=== PATIENT | male | born 1960 | race Caucasian/White ===

== ENCOUNTER 2020-09-22 12:11 | Inpatient (IN) | payer OTHER, SELFPAY ==
[2020-09-22 13:01] LABS: #Basophils 0.1 thou/uL (0.0-0.2); #Eosinphils 0.1 thou/uL (0.0-0.7); #Lymphocytes 2.1 thou/uL (1.20-3.40); #Monocytes 0.7 thou/uL (0.11-0.59); %Eosinophils 0.6 % (0.0-10.0); %Lymphocytes 16.1 % (21.0-51.0); %Monocytes 5.2 % (0.0-10.0); %Neutrophils 77.1 % (42.0-75.0); Hemoglobin 15.9 g/dL (14.0-18.0); Mean Corpuscular HGB CONC 34.6 g/dL (32.0-36.0); Mean Corpuscular Hemoglobin 35.5 pg (27.0-31.0); Mean Platelet Volume 7.3 fL (7.4-10.4); Platelet Count 242 thou/uL (130-400); RBC Distribution Width 11.7 % (11.5-14.5); Red Blood Cell (RBC) Count 4.48 mill/uL (4.70-6.10)
[2020-09-22 13:23] LABS: ALT (SGPT) 12 U/L (8-55); AST (SGOT) 28 U/L (5-34); Alkaline Phosphatase 73 U/L (40-110); Anion Gap 16 mmol/L (10-20); BUN (Urea Nitrogen) 10 mg/dL (8.4-25.7); Bilirubin, Total 0.5 mg/dL (0.2-1.2); Calc. Creatinine Clearance 0 mL/min (70-130); Calcium 9.1 mg/dL (7.8-10.44); Carbon Dioxide 23 mmol/L (22-29); Chloride 104 mmol/L (98-107); Estimated GFR-MDRD 90; Globulin 3.1 g/dL (2.4-3.5); Glucose 99 mg/dL (70-105); Potassium 4.6 mmol/L (3.5-5.1); Protein, Total 7.1 g/dL (6.0-8.3); Sodium 138 mmol/L (136-145)
[2020-09-22] MEDS ORDERED: Nitroglycerin 2% Ointment 1 INCH/1 GM Packet ONE (13:45)
[2020-09-22] MEDS ORDERED: Aspirin 325 MG TAB ONE (13:45)
[2020-09-22] MEDS ORDERED: Metoprolol Tartrate 5 MG/5 ML VIAL ONE (13:45)
[2020-09-22] MEDS ORDERED: Enoxaparin Sodium 100 MG/ML SYRINGE ONE (13:45)
--- NOTE | 2020-09-22 14:33 | RAD ---
PORTABLE CHEST: Date: 09-22-2020 PROVIDED CLINICAL HISTORY: Chest pain FINDINGS: Comparison 04-12-2016. Cardiac and mediastinal silhouette is within normal limits. Emphysematous changes are noted with diff use interstitial prominence which appears new since the prior study. There is no pleural fluid or pne umothorax apparent. There is a 7 mm right upper lobe pulmonary nodule, incompletely characterized on the basis of this st udy. IMPRESSION: 1. Diffuse bilateral interstitial prominence, correlation with concerns for pneumonia. Follow up aimee mmended. 2. Right upper lung zone pulmonary nodule for which correlation with non-emergent follow up CT is rec ommended. Code Lung Nodule POS: LIAM
--- NOTE | 2020-09-22 15:02 | PDOC.HHP ---
Hospitalist HPI - History of Present Illness chest pain History of Present Illness: PCP: None The patient is a 60-year-old male with a past medical history for hypertension, smoking, marijuana abuse depression and noncompliance with home medications that presents to the emergency department via EMS for the above complaint. The patient reports sudden onset of chest pain at approximately 7:30 this morning while getting ready to go to work. He reports that the pain was located midsternum, nonradiating, described as pressure like, sharp and steady, exacerbated with exertion and relieved by sublingual nitroglycerin, pain scale 9/10, after sublingual nitroglycerin, pain scale 1/10. He reports that he has had this pain 3-4 times in the last month. He reports that this morning's episode was the worst, stating that it would not stop. Patient denies any heart palpitations, lightheadedness or swelling to lower extremities. He reports some associated shortness of breath, chronic non productive cough, denies wheezing. No history of DVT/PE. No history of COPD/asthma. He denies abusing any stimu lants. ED Course: VITAL SIGNS [place] Sep 22, 2020 12:37 Esquivel RN, Daniel BP: 156/89, MAP: 111, Pulse: 104, Resp: 18, Temp: 98.2 (Oral), Pain: 0, O2 sat: 97 on (Room Air), Time: 09/22/2020 12:37. VITAL SIGNS [place] Sep 22, 2020 13:50 UGO Aburto Jeffery BP: 151/94, MAP: 113, Pulse: 91, Resp: 34, Pain: 2, O2 sat: 98, Time: 09/22/2020 13:50. VITAL SIGNS [place] Sep 22, 2020 14:01 UGO Aburto Jeffery BP: 151/96, MAP: 114, Pulse: 94, Resp: 29, Pain: 2, O2 sat: 98 on (Room Air), Time: 09/22/2020 14:01. Medication administration: metoprolol tartrate intravenous 5 mg IV Push Acknowledged 13:36 09/22/2020 Lovenox 1 mg/kg Subcutaneous Given 14:00 09/22/2020 Nitro-Bid transdermal 1 inch Topical Given 13:54 09/22/2020 aspirin oral 324 mg Oral Given 13:52 09/22/2020 Hospitalist ROS - Review of Systems All other systems reviewed; all pertinent +/- noted in HPI/Subj - Medication Medications: None Allergies: None Hospitalist History - Past Medical History Source: patient, RN notes reviewed Cardiac: reports: HTN (Noncompliant) Psych: reports: Depression (No home medication regimen) - Past Surgical History Past Surgical History: reports: Total Hip Replacement (Right), Other (History of colostomy with reversal) - Family History Family History: reports: cardiac disorder - Social History Smoking Status: Current every day smoker (2 packs/day x 30 years) Tobacco Type: cigarettes Alcohol: reports: Heavy (3 rum and cokes per day) Drugs: reports: marijuana (1 joint per day) Living Situation: With Family Activity level: independent ambulation - Exam General Appearance: NAD, awake alert. negative: ill appearing General - other findings: Appears older than stated age Eye: anicteric sclera ENT: normocephalic atraumatic, moist mucosa Neck: supple, symmetric, no JVD Heart: RRR, no murmur, no gallops, no rubs, normal peripheral pulses Respiratory: no wheezes, no rales, no ronchi, normal chest expansion, no tachypnea Respiratory - other findings: Diminished lower lobes Gastrointestinal: soft, non-tender, normal bowel sounds, no bruit, no guarding, no rigidity Extremities: no cyanosis, no edema Skin: no rashes Neurological: no focal deficits Musculoskeletal: normal tone, normal strength Psychiatric: normal affect, A&O x 3 Hospitalist Results - Labs Result Diagrams: 09/22/20 12:33 09/22/20 12:33 Lab results: WBC 13.0 thou/uL (4.8-10.8) H 09/22/20 12:33 Hgb 15.9 g/dL (14.0-18.0) 09/22/20 12:33 Hct 46.0 % (42.0-52.0) 09/22/20 12:33 MCV 103.0 fL (78.0-98.0) H 09/22/20 12:33 Plt Count 242 thou/uL (130-400) 09/22/20 12:33 Neutrophils % 77.1 % (42.0-75.0) H 09/22/20 12:33 Sodium 138 mmol/L (136-145) 09/22/20 12:33 Potassium 4.6 mmol/L (3.5-5.1) 09/22/20 12:33 Chloride 104 mmol/L (98-107) 09/22/20 12:33 Carbon Dioxide 23 mmol/L (22-29) 09/22/20 12:33 BUN 10 mg/dL (8.4-25.7) 09/22/20 12:33 Creatinine 0.87 mg/dL (0.7-1.3) 09/22/20 12:33 Glucose 99 mg/dL (70-105) 09/22/20 12:33 Calcium 9.1 mg/dL (7.8-10.44) 09/22/20 12:33 Total Bilirubin 0.5 mg/dL (0.2-1.2) 09/22/20 12:33 AST 28 U/L (5-34) 09/22/20 12:33 ALT 12 U/L (8-55) 09/22/20 12:33 Alkaline Phosphatase 73 U/L (40-110) 09/22/20 12:33 CK-MB (CK-2) 5.0 ng/mL (0-6.6) 09/22/20 12:33 Troponin I 0.301 ng/mL (< 0.028) H* 09/22/20 12:33 Serum Total Protein 7.1 g/dL (6.0-8.3) 09/22/20 12:33 Albumin 4.0 g/dL (3.5-5.0) 09/22/20 12:33 Lipase 30 U/L (8-78) 09/22/20 12:32 - EKG Interpretation EK lead EKG interpreted by Emergency Department Physician at time of study, 12 lead EKG shows, sinus tachycardia, Rate (beats per minute): 101, with no ectopics, Conduction with, incomplete right bundle branch block, ST segments normal, T waves, inverted, Areas affected: lateral leads, [place] normal, Clinical impression:, myocardial injury. - Radiology Interpretation Chest x-ray Status: report reviewed by me Additional Comment: IMPRESSION: 1. Diffuse bilateral interstitial prominence, correlation with concerns for pneumonia. Follow up recommended. 2. Right upper lung zone pulmonary nodule for which correlation with non- emergent follow up CT is recommended. CT scan - chest Status: pending Hospitalist H&P A/P - Problem (1) Non-STEMI (non-ST elevated myocardial infarction) Code(s): I21.4 - NON-ST ELEVATION (NSTEMI) MYOCARDIAL INFARCTION Status: Acute (2) Chest pain Code(s): R07.9 - CHEST PAIN, UNSPECIFIED Status: Acute (3) Bilateral pulmonary infiltrates on chest x-ray Code(s): R91.8 - OTHER NONSPECIFIC ABNORMAL FINDING OF LUNG FIELD Status: Acute (4) Right upper lobe pulmonary nodule Code(s): R91.1 - SOLITARY PULMONARY NODULE Status: Acute (5) Hypertension Code(s): I10 - ESSENTIAL (PRIMARY) HYPERTENSION Status: Chronic (6) Tobacco abuse Code(s): Z72.0 - TOBACCO USE Status: Chronic (7) Marijuana abuse Code(s): F12.10 - CANNABIS ABUSE, UNCOMPLICATED Status: Chronic (8) ETOH abuse Code(s): F10.10 - ALCOHOL ABUSE, UNCOMPLICATED Status: Chronic - Plan Plan: 60/M with PMH HTN (noncompliant) and smoking presents for chest pain. Admit telemetry floor, inpatient status. Expected length of stay greater than 2 midnights. Presented hypertensive and tachycardic, with NL RR/SPO2, afebrile. EKG sinus tachycardia, incomplete RBBB, T inversions lateral leads CXR diffuse bilateral interstitial prominence, RUL pulm. nodule. Initial troponin 0.301, CK-MB 5.0, DD 0.56 WBC 13 #Non-STEMI Heart score 5, Wells PE score 1.5. Order CTA chest. Trend troponins, check FLP, BMP, mag, UA/UDS. Continue aspirin, LMWH 1 mg/kg, Nitropaste Start statin, morphine as needed N.p.o. for now Consult cardiology Order echocardiogram. #Chest pain Unstable angina. Resolved with nitroglycerin sublingual. Plan as above. #Bilateral pulmonary infiltrates on chest x-ray Presented stable afebrile, RR, Sp02. WBCs 13,000. CTA chest pending. #Right upper lobe pulmonary nodule Incidental finding on CXR. Recommend nonemergent CT chest. Will need follow up outpatient. #Hypertension Presented mildly hypertensive. Given metoprolol IVP x1 dose in ER. We will monitor BP. Will add as needed antihypertensives if necessary. #Tobacco abuse 2 pack/day x 30-year habit. Unwilling to quit. Nicotine patch. [employer] Hand on smoking cessation.. #Marijuana abuse Smokes 1 joint per day. Unwilling to quit. Check UDS for coingestants. #EtOH abuse Endorses 3-4 rum and coke daily. Never been admitted for EtOH withdrawals. Check UDS for coingestants. Initiate ASE protocol for nursing. No DVT prophylaxis. Pepcid for GI prophylaxis. Full code. Designated contact is Karen, spouse, . Discussed the case with Dr. Johnson.
[2020-09-22] MEDS ORDERED: Nitroglycerin 0.4 MG TAB (25 Tab Bottle) SL PRN (15:10)
[2020-09-22] MEDS ORDERED: Senokot S 8.6-50 MG TAB PO PRN (15:15)
[2020-09-22] MEDS ORDERED: Calcium Carbonate 500 MG ChewTAB PO PRN (15:15)
[2020-09-22] MEDS ORDERED: Acetaminophen 325 MG TAB PO PRN (15:15)
[2020-09-22] MEDS ORDERED: Iopamidol-370 76% 500 ML 1 ML ONE (15:42)
[2020-09-22 16:33] LABS: Troponin I 2.527 ng/mL (< 0.028)
--- NOTE | 2020-09-22 17:21 | CT ---
CT PULMONARY ANGIOGRAM WITH IV CONTRAST AND 3D MIP RECONSTRUCTIONS: Date: 09-22-2020 PROVIDED CLINICAL HISTORY: Chest pain FINDINGS: There is no evidence for central or segmental pulmonary embolus. Vascular calcification including cor onary calcium is demonstrated. There are several upper limits normal to mildly enlarged mediastinal lymph nodes, the largest paratra cheal node measures about 1.2 cm in short axis. There is no evidence for hilar or axillary lymph node enlargement. There are noncalcified pulmonary nodules within the right upper lobe and left upper lobe. There are t wo within the right upper lobe and one in the left upper lobe. The largest is the right upper nodule, more cranially located, measuring approximately 7.5 mm in axial dimension. There is no focal consolidation evident. There is diffuse bronchial wall thickening bilaterally. No pleural fluid or pneumothorax is evident. The visualized portions of the upper abdomen are unremar kable. The osseous structures demonstrate no concerning lytic or blastic lesions. IMPRESSION: 1. No evidence for central or segmental pulmonary embolus. 2. Vascular calcification including coronary calcium. 3. Diffuse bronchial wall thickening compatible with bronchitis. 4. Bilateral pulmonary nodules, the largest right upper lobe nodule measuring about 7.5 mm in average axial dimension. Follow up chest CT in 6 months is recommended. 5. Nonspecific mediastinal lymph node enlargement. POS: LIAM
[2020-09-22] MEDS: Morphine 2 MG/ML VIAL SLOW IVP PRN (17:59)
[2020-09-22] MEDS ORDERED: Morphine 4 MG/ML VIAL ONE (18:01)
[2020-09-22 20:50] LABS: Troponin I 5.129 ng/mL (< 0.028)
[2020-09-22] MEDS: Enoxaparin Sodium 80 MG/0.8 ML SYRINGE SC SCH (21:01)
[2020-09-22] MEDS: Atorvastatin Calcium 40 MG TAB PO SCH (21:01)
[2020-09-22] MEDS: Nicotine 7 MG PATCH TD SCH (21:02)
[2020-09-22] MEDS: Nitroglycerin 2% Ointment 1 INCH/1 GM Packet TOP SCH (21:02)
[2020-09-23] MEDS: Morphine 2 MG/ML VIAL SLOW IVP PRN ×2 (01:45→21:55)
[2020-09-23 04:36] LABS: #Basophils 0.1 thou/uL (0.0-0.2); #Eosinphils 0.1 thou/uL (0.0-0.7); #Lymphocytes 3.5 thou/uL (1.20-3.40); #Monocytes 0.7 thou/uL (0.11-0.59); #Neutrophils 4.8 thou/uL (1.40-6.50); %Eosinophils 0.8 % (0.0-10.0); %Lymphocytes 38.1 % (21.0-51.0); %Monocytes 7.3 % (0.0-10.0); %Neutrophils 52.7 % (42.0-75.0); Hemoglobin 13.9 g/dL (14.0-18.0); Mean Corpuscular HGB CONC 34.4 g/dL (32.0-36.0); Mean Corpuscular Hemoglobin 35.2 pg (27.0-31.0); Mean Platelet Volume 7.6 fL (7.4-10.4); Platelet Count 205 thou/uL (130-400); RBC Distribution Width 11.5 % (11.5-14.5); Red Blood Cell (RBC) Count 3.96 mill/uL (4.70-6.10); White Blood Cell (WBC) Count 9.1 thou/uL (4.8-10.8)
[2020-09-23 05:05] LABS: Anion Gap 14 mmol/L (10-20); BUN (Urea Nitrogen) 10 mg/dL (8.4-25.7); Calc. Creatinine Clearance 108 mL/min (70-130); Calcium 8.7 mg/dL (7.8-10.44); Carbon Dioxide 21 mmol/L (22-29); Cardiac Risk 3.3 (Less than 4.5); Chloride 102 mmol/L (98-107); Cholesterol 150 mg/dl (< 200 Desired); Estimated GFR-MDRD Greater than 90; Glucose 102 mg/dL (70-105); HDL Cholesterol 46 mg/dL (>60 Neg Risk); LDL Cholesterol, Calculated 89 mg/dL; Potassium 3.6 mmol/L (3.5-5.1); Sodium 133 mmol/L (136-145); Triglycerides 77 mg/dL (Less than 150)
[2020-09-23] MEDS: Nitroglycerin 2% Ointment 1 INCH/1 GM Packet TOP SCH ×3 (06:11→21:56)
[2020-09-23 08:06] LABS: Bacteria/HPF None Seen HPF (None Seen); Bilirubin Negative (Negative); Blood, Urine Trace (Negative); Clarity Clear (Clear); Glucose, Urine (Dipstick) Normal (Negative); Ketone, Urine Negative (Negative); Leukocyte Negative Leu/uL (Negative); Nitrite Negative (Negative); Protein, Urine (Dipstick) 10 mg/dL (Neg-Trace); RBC/HPF 0-3 HPF (0-3); Specific Gravity, Urine 1.039 (1.002-1.036); Squamous Epithelial 0-3 HPF (0-3); Urobilinogen Normal mg/dL (Less than 2); WBC/HPF 0-3 HPF (0-3)
[2020-09-23] MEDS: Enoxaparin Sodium 80 MG/0.8 ML SYRINGE SC SCH ×2 (09:34→21:54)
[2020-09-23] MEDS: Aspirin 81 mg Enteric Coated Tablet PO SCH (09:34)
--- NOTE | 2020-09-23 11:07 | PDOC.HOSPP ---
- Subjective Encounter Date: 09/23/20 Encounter Time: 08:00 Subjective: No overnight events. Patient reports his chest pain has resolved. No additional episodes. Denies shortness of breath, palpitations. No other complaints. Chart and medications reviewed. - Objective Vital Signs & Weight: Vital Signs (12 hours) Temp Pulse Resp BP BP Pulse Ox 09/23/20 07:36 97.6 F 78 18 129/91 H 97 09/23/20 07:32 95 09/23/20 06:00 98.2 F 72 16 133/80 133/80 95 Weight Weight 156 lb I&O: 09/22/20 09/23/20 09/24/20 06:59 06:59 06:59 Intake Total 500 Balance 500 Result Diagrams: 09/23/20 04:08 09/23/20 04:08 Hospitalist ROS - Review of Systems Constitutional: denies: fever, chills, sweats, weakness Eyes: denies: vision change ENT: denies: nose congestion, throat pain Respiratory: denies: cough, shortness of breath Cardiovascular: denies: chest pain, palpitations, light headedness Gastrointestinal: denies: nausea, vomiting, abdominal pain, diarrhea Genitourinary: denies: dysuria Skin: denies: rash, lesions Neurological: denies: weakness, numbness - Medication Medications: Active Medications Generic Name Dose Route Start Last Admin Trade Name Freq PRN Reason Stop Dose Admin Acetaminophen 650 mg 09/22/20 15:15 09/22/20 21:14 Acetaminophen 325 Mg Tab PO 650 mg Q4H PRN Administration Headache/Fever/Mild Pain (1-3) Aspirin 81 mg 09/23/20 09:00 09/23/20 09:34 Aspirin 81 Mg Enteric Coated Tablet PO 81 mg DAILY WES Administration Atorvastatin Calcium 40 mg 09/22/20 21:00 09/22/20 21:01 Atorvastatin Calcium 40 Mg Tab PO 40 mg HS WES Administration Enoxaparin Sodium 70 mg 09/22/20 21:00 09/23/20 09:34 Enoxaparin Sodium 80 Mg/0.8 Ml Syringe SC 70 mg 0900,2100 WES Administration Morphine Sulfate 2 mg 09/22/20 15:14 09/23/20 01:45 Morphine 2 Mg/Ml Vial SLOW IVP 2 mg Q4H PRN Administration Pain Nicotine 7 mg 09/22/20 18:00 09/22/20 21:02 Nicotine 7 Mg Patch TD 7 mg 1800 WES Administration Nitroglycerin 0.5 inch 09/22/20 22:00 09/23/20 06:11 Nitroglycerin 2% Ointment 1 Inch/1 Gm Packet TOP 0.5 inch Q8HR WES Administration - Exam General Appearance: NAD, awake alert Eye: anicteric sclera ENT: normocephalic atraumatic, no oropharyngeal lesions Neck: supple, symmetric, no JVD, no thyromegaly, no lymphadenopathy, no carotid bruit Heart: RRR, no murmur, no gallops, no rubs, normal peripheral pulses Respiratory: CTAB, no wheezes, no rales, no ronchi, normal chest expansion, no tachypnea, normal percussion Gastrointestinal: soft, non-tender, non-distended, normal bowel sounds, no palpable masses, no hepatomegaly, no splenomegaly, no bruit Extremities: no cyanosis, no clubbing, no edema Skin: normal turgor, no lesions, no rashes Neurological: cranial nerve grossly intact, normal sensation to touch, no weakness, no focal deficits, no new deficit Musculoskeletal: normal tone, normal strength, no muscle wasting Psychiatric: normal affect, normal behavior, A&O x 3 Hosp A/P - Plan 60/M with PMH HTN (noncompliant) and smoking presents for chest pain. Admit telemetry floor, inpatient status. Expected length of stay greater than 2 midnights. Presented hypertensive and tachycardic, with NL RR/SPO2, afebrile. EKG sinus tachycardia, incomplete RBBB, T inversions lateral leads CXR diffuse bilateral interstitial prominence, RUL pulm. nodule. Initial troponin 0.301, CK-MB 5.0, DD 0.56 WBC 13 NSTEMI Troponin elevated 0.301, 2.527, 5.129. EKG with no ST depression or elevation. Continue to trend troponin to peak Continue aspirin, LMWH 1 mg/kg, Nitropaste Start statin, morphine as needed Cardiology consulted, recs appreciated Echocardiogram pending #Chest pain Unstable angina. Resolved with nitroglycerin sublingual. Plan as above. #Bilateral pulmonary infiltrates on chest x-ray Presented stable afebrile, RR, Sp02. WBCs 13,000. CTA chest with no PE. Did show diffuse bronchial wall thickening c/w bronchitis No SOB. Patient's respiratory status stable. Will likely need outpatient follow up for PFTs. #Right upper lobe pulmonary nodule Incidental finding on CXR. Recommend nonemergent CT chest in 6 months. Will need follow up outpatient. #Hypertension Presented mildly hypertensive. Given metoprolol IVP x1 dose in ER. We will monitor BP. Will add as needed antihypertensives if necessary. #Tobacco abuse 2 pack/day x 30-year habit. Unwilling to quit. Nicotine patch. Hod Carrier on smoking cessation.. #Marijuana abuse Smokes 1 joint per day. Unwilling to quit. Check UDS for coingestants. #EtOH abuse Endorses 3-4 rum and coke daily. Never been admitted for EtOH withdrawals. Check UDS for coingestants. Initiate ASE protocol for nursing. DVT prophylaxis - full AC on lovenox Full code. Designated contact is Karen, spouse, . Case discussed with attending physician, Dr. Johnson.
[2020-09-23 13:02] LABS: SARS-CoV-2 MS2 Positive; SARS-CoV-2 N Gene Negative; SARS-CoV-2 S Gene Negative; SARS-CoV-2 by NAA Not Detected (NotDetected); SARS-CoV-2 orf1ab Negative
[2020-09-23] MEDS ORDERED: Communication Order-Pharmacy FS SCH (14:15)
[2020-09-23 14:39] LABS: Amphetamine Not Detected (NotDetected); Barbiturates Screen Not Detected (NotDetected); Benzodiazepine Screen Not Detected (NotDetected); Cocaine Metabolite Screen Not Detected (NotDetected); Medtox Reader # READER 4; Methadone Not Detected (NotDetected); Methamphetamine Not Detected (NotDetected); Opiate Screen Detected (NotDetected); Oxycodone Screen Not Detected (NotDetected); Phencyclidine (PCP) Not Detected (NotDetected); THC/Cannabinoid Screen Not Detected (NotDetected); Tricyclic Screen Not Detected (NotDetected)
[2020-09-23 14:40] LABS: Medtox Control Line Valid? VALID (VALID)
[2020-09-23 14:49] LABS: Critical Call Chem Troponin I RESULT DECREASING
[2020-09-23 15:16] LABS: CKMB 7.3 ng/mL (0-6.6)
--- NOTE | 2020-09-23 15:45 | CON ---
DATE OF CONSULTATION: 09/23/2020 REASON FOR CONSULTATION: Non-ST elevation myocardial infarction. HISTORY OF PRESENT ILLNESS: Mr. Hudson is a 60-year-old man, who has been having recent chest pain or pressure. The chest pain or pressure has been going on for a couple of weeks, but he had a severe episode last night, came here to the emergency room, where he had relief of pain with medication. He is pain-free now. However, his troponin levels are increased. PAST HISTORY: Negative for any cardiac operations or procedures. Positive for hypertension. REVIEW OF SYSTEMS: CONSTITUTIONAL: No significant weight gain or loss. VISION: No changes. HEARING: No changes. PULMONARY: No cough or wheezing. GASTROINTESTINAL: No nausea, vomiting, or diarrhea. SKIN: No rashes. NEUROLOGIC: No unilateral weakness or numbness. PSYCHIATRIC: No unusual depression or anxiety. SOCIAL HISTORY: According to the initial history and physical, 2-pack cigarettes per day for 30 years. Alcohol, 3 rum and cokes per day. FAMILY HISTORY: Noncontributory. PHYSICAL EXAMINATION: GENERAL: This is a 60-year-old male, in no distress. VITAL SIGNS: Blood pressure now controlled 137/83, pulse 70. LUNGS: Clear. CARDIAC: Normal S1, normal S2. There is no murmur, rub, or gallop. ABDOMEN: Soft and nontender. EXTREMITIES: Warm, dry. No clubbing. No cyanosis. There is no edema. The pedal pulses seem somewhat diminished, but palpable. LABORATORY DATA: Current laboratories; troponin 5.129. BNP 362. IMAGING STUDIES: EKG reveals normal sinus rhythm, left ventricular hypertrophy with repolarization changes. ASSESSMENT: 1. [id number] myocardial infarction. 2. Hypertension. 3. Tobacco dependence. 4. Received Lovenox this morning, full dose 1 mg/kg subcutaneously at 9:34 a.m. PLAN: Proceed to cardiac catheterization tomorrow. Discussed risk of stroke, heart attack, iodine allergy, loss of blood supply to leg or kidney, stent thrombosis, stent restenosis, emergency heart surgery. He understands these can even be life-threatening complications. He understands and wishes to proceed. We will proceed to schedule tomorrow morning. Job ID: [id number]
[2020-09-23] MEDS: Nicotine 7 MG PATCH TD SCH (17:51)
[2020-09-23 18:03] LABS: Critical Call Chem Troponin I RESULT DECREASING
[2020-09-23 18:21] LABS: CKMB 6.3 ng/mL (0-6.6)
[2020-09-23] MEDS: Atorvastatin Calcium 40 MG TAB PO SCH (21:54)
[2020-09-24] MEDS: Aspirin 81 mg Enteric Coated Tablet PO SCH (05:36)
[2020-09-24] MEDS: Nitroglycerin 2% Ointment 1 INCH/1 GM Packet TOP SCH ×2 (05:37→15:54)
[2020-09-24] MEDS ORDERED: Sodium Chloride 0.9% 1,000 ML IV SCH (06:00)
[2020-09-24] MEDS ORDERED: Diazepam 5 MG TAB PO SCH (06:00)
[2020-09-24] MEDS ORDERED: Fentanyl 100 MCG/2 ML VIAL ONE (07:35)
[2020-09-24] MEDS ORDERED: Midazolam HCl 2 mg/2 ml Vial ONE ×2 (07:35→08:13)
[2020-09-24] MEDS ORDERED: Heparin 10,000 UNITS/ 10 ML VIAL ONE ×2 (08:07→08:22)
[2020-09-24] MEDS ORDERED: Heparin 25,000 units/D5W 500 ML ONE (08:13)
--- NOTE | 2020-09-24 08:54 | PDOC.HOSPP ---
- Subjective Encounter Date: 09/24/20 Encounter Time: 16:00 Subjective: Patient back from CABG. Still on the vent. - Objective Vital Signs & Weight: Vital Signs (12 hours) Temp Pulse Resp BP BP Pulse Ox 09/24/20 04:00 142/70 H 09/24/20 03:20 98.6 F 67 18 142/70 H 98 09/24/20 01:13 98 09/23/20 22:00 64 169/78 H 09/23/20 21:00 77 169/80 H Weight Weight 152 lb I&O: 09/23/20 09/24/20 09/25/20 06:59 06:59 06:59 Intake Total 500 200 Output Total 1 Balance 500 199 Result Diagrams: 09/24/20 14:30 09/24/20 14:30 Hospitalist ROS - Review of Systems ROS unobtainable: due to endotracheal tube - Medication Medications: Active Medications Generic Name Dose Route Start Last Admin Trade Name Freq PRN Reason Stop Dose Admin Acetaminophen 650 mg 09/22/20 15:15 09/22/20 21:14 Acetaminophen 325 Mg Tab PO 650 mg Q4H PRN Administration Headache/Fever/Mild Pain (1-3) Aspirin 81 mg 09/23/20 09:00 09/24/20 05:36 Aspirin 81 Mg Enteric Coated Tablet PO 81 mg DAILY WES Administration Atorvastatin Calcium 40 mg 09/22/20 21:00 09/23/20 21:54 Atorvastatin Calcium 40 Mg Tab PO 40 mg HS WES Administration Sodium Chloride 1,000 mls @ 100 mls/hr 09/24/20 06:00 09/24/20 05:37 Normal Saline 0.9% IV 1,000 mls .Q10H WES Administration Morphine Sulfate 2 mg 09/22/20 15:14 09/23/20 21:55 Morphine 2 Mg/Ml Vial SLOW IVP 2 mg Q4H PRN Administration Pain Nicotine 7 mg 09/22/20 18:00 09/23/20 17:51 Nicotine 7 Mg Patch TD 7 mg 1800 WES Administration Nitroglycerin 0.5 inch 09/22/20 22:00 09/24/20 05:37 Nitroglycerin 2% Ointment 1 Inch/1 Gm Packet TOP 0.5 inch Q8HR WES Administration Nitroglycerin 0.4 mg 09/22/20 15:10 09/23/20 19:45 Nitroglycerin 0.4 Mg Tab (25 Tab Bottle) SL 0.4 mg Q5MIN PRN Administration Chest Pain - Exam General - other findings: Starting to wake up and get restless, on the vent ENT: moist mucosa Heart: RRR, no murmur, no gallops, no rubs Heart - other findings: sternotomy incision with dressing c/d/i, chest tube in place Respiratory: CTAB, no wheezes, no rales, no ronchi Gastrointestinal: soft, non-tender, non-distended, normal bowel sounds Neurological: no focal deficits Psychiatric - other findings: sedated on vent Hosp A/P (1) Non-STEMI (non-ST elevated myocardial infarction) Code(s): I21.4 - NON-ST ELEVATION (NSTEMI) MYOCARDIAL INFARCTION Status: Acute (2) CAD (coronary artery disease) Code(s): I25.10 - ATHSCL HEART DISEASE OF [place] CORONARY ARTERY W/O ANG PCTRS Status: Acute (3) Right upper lobe pulmonary nodule Code(s): R91.1 - SOLITARY PULMONARY NODULE Status: Acute (4) ETOH abuse Code(s): F10.10 - ALCOHOL ABUSE, UNCOMPLICATED Status: Chronic (5) Hypertension Code(s): I10 - ESSENTIAL (PRIMARY) HYPERTENSION Status: Chronic (6) Marijuana abuse Code(s): F12.10 - CANNABIS ABUSE, UNCOMPLICATED Status: Chronic (7) Tobacco abuse Code(s): Z72.0 - TOBACCO USE Status: Chronic - Plan 60/M with PMH HTN (noncompliant) and smoking presents for chest pain. Admit telemetry floor, inpatient status. Expected length of stay greater than 2 midnights. Presented hypertensive and tachycardic, with NL RR/SPO2, afebrile. EKG sinus tachycardia, incomplete RBBB, T inversions lateral leads CXR diffuse bilateral interstitial prominence, RUL pulm. nodule. Initial troponin 0.301, CK-MB 5.0, DD 0.56 WBC 13 #Non-STEMI Heart score 5, [place] PE score 1.5. Order CTA chest. Trend troponins, check FLP, BMP, mag, UA/UDS. Continue aspirin, LMWH 1 mg/kg, Nitropaste Start statin, morphine as needed N.p.o. for now Consult cardiology Order echocardiogram. #NSTEMI Had cardiac cath this morning. #CAD- severe multivessel disease needing urgent CABG, Dr. Miramontes consulted and took to Cath this afternoon, now in ICU #Bilateral pulmonary infiltrates on chest x-ray with bronchitis on CTA, no pneumonia Presented stable afebrile, RR, Sp02. WBCs 13,000. #Right upper lobe pulmonary nodule on CXR with bilateral nodules on CTA Recommend repeat CT chest in 6 months Will need follow up outpatient. #Hypertension Monitor and treat as needed. #Tobacco abuse 2 pack/day x 30-year habit. Unwilling to quit. Nicotine patch. [employer] on smoking cessation.. #Marijuana abuse Smokes 1 joint per day. Unwilling to quit. Check UDS for coingestants. #EtOH abuse Endorses 3-4 rum and coke daily. Never been admitted for EtOH withdrawals. Initiated ASE protocol for nursing. DVT prophylaxis- on Lovenox for the NSTEMI. Pepcid for GI prophylaxis. Full code. Designated contact is Karen, spouse, .
[2020-09-24] MEDS ORDERED: Albumin 5% 500 ML ONE (09:14)
[2020-09-24] MEDS ORDERED: Morphine 2 MG/ML VIAL ONE (09:23)
[2020-09-24] MEDS ORDERED: Heparin 10,000 UNITS/1 ML VIAL 30,000 UNITS in Sodium Chloride 0.9% 1,000 ML FS SCH (09:30)
[2020-09-24] MEDS ORDERED: Fentanyl 250 MCG/5 ML VIAL ONE ×2 (09:48)
[2020-09-24] MEDS ORDERED: Midazolam HCl 5 mg/5 ml Vial ONE (09:48)
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
[2020-09-24] MEDS ORDERED: PHENYLEPHRINE-NS 100 MCG/ML 10 ML SYRINGE ONE (11:42)
[2020-09-24] MEDS ORDERED: Esmolol 100 MG/10 ML VIAL ONE (13:01)
[2020-09-24] MEDS ORDERED: Vecuronium 10 MG VIAL ONE (13:01)
[2020-09-24] MEDS ORDERED: Heparin 5,000 UNITS/ML VIAL ONE (13:01)
[2020-09-24] MEDS ORDERED: Lidocaine 2% PF 100 mg/5 ml Syringe ONE (13:01)
[2020-09-24] MEDS ORDERED: Sodium Bicarb 50 MEQ/50 ML Abboject 8.4% SYRINGE ONE (13:01)
[2020-09-24] MEDS ORDERED: DOPamine 400 MG/10 ML VIAL ONE (13:01)
[2020-09-24] MEDS ORDERED: Aminocaproic Acid 5 GM/20 ML VIAL ONE (13:01)
[2020-09-24] MEDS ORDERED: Thrombin 5000 UNITS/5 ML VIAL ONE (13:01)
[2020-09-24] MEDS ORDERED: Lidocaine 1% PF 5 ML VIAL ONE (13:01)
[2020-09-24] MEDS ORDERED: Mannitol 12.5 GM/50 ML ONE (13:01)
[2020-09-24] MEDS ORDERED: Metoprolol Tartrate 5 MG/5 ML VIAL ONE (13:01)
[2020-09-24] MEDS ORDERED: Nitroglycerin 50 MG/250 ML BOT ONE (13:01)
[2020-09-24] MEDS ORDERED: Potassium Chloride 60 MEQ/30 ML VIAL ONE (13:01)
[2020-09-24] MEDS ORDERED: Heparin 30,000 units/30 ml VIAL ONE (13:01)
[2020-09-24] MEDS ORDERED: Cardioplegic Soln 1,000 ML BAG ONE (13:01)
[2020-09-24] MEDS ORDERED: Rocuronium Bromide 10 MG/ML (10ML VIAL) ONE (13:01)
[2020-09-24] MEDS ORDERED: PROPOFOL 200 MG/20 ML VIAL ONE (13:01)
[2020-09-24] MEDS ORDERED: Magnesium Sulfate 1 GM/2 ML VIAL ONE (13:01)
[2020-09-24] MEDS ORDERED: Protamine Sulfate 250 MG/25 ML VIAL ONE (13:01)
[2020-09-24] MEDS ORDERED: Calcium Chloride 1 GM/10 ML Abboject SYRINGE ONE (13:01)
[2020-09-24] MEDS ORDERED: Papaverine 60 MG/2 ML VIAL ONE (13:01)
[2020-09-24] MEDS ORDERED: Iopamidol 370 76% 100 ML VIAL ONE (13:34)
[2020-09-24] MEDS ORDERED: Hetastarch 6% 500 ML 500 ML IVPB PRN (14:01)
[2020-09-24] MEDS ORDERED: Magnesium 2 GM/50 ML 2 GM in Premix Bag 1 BAG IVPB SCH (14:01)
[2020-09-24] MEDS ORDERED: Bisacodyl 10 MG SUPP PR PRN (14:01)
[2020-09-24] MEDS ORDERED: Post-Op Insulin Drip Protocol IVPB ONE (14:01)
[2020-09-24] MEDS ORDERED: Morphine 2 MG/ML VIAL SLOW IVP PRN (14:01)
[2020-09-24] MEDS ORDERED: Acetaminophen 325 MG TAB PO PRN (14:01)
[2020-09-24] MEDS ORDERED: DOPamine 400 MG/D5W 250 ML 250 ML IVPB PRN (14:01)
[2020-09-24] MEDS ORDERED: hydrALAZINE 20 MG/ML VIAL SLOW IVP PRN (14:01)
[2020-09-24] MEDS ORDERED: Ondansetron PF 4 MG/2 ML Vial IVP PRN (14:01)
[2020-09-24] MEDS ORDERED: Nitroglycerin 50 MG/250 ML BOT 250 ML IVPB PRN (14:01)
[2020-09-24] MEDS ORDERED: Fentanyl 100 MCG/2 ML VIAL SLOW IVP PRN (14:01)
[2020-09-24] MEDS ORDERED: Bisacodyl 5 MG TAB PO PRN (14:01)
[2020-09-24] MEDS ORDERED: niCARdipine 25 MG in Sodium Chloride 0.9% 250 ML 240 ML IVPB PRN (14:01)
[2020-09-24] MEDS ORDERED: Norepinephrine 8 MG/0.9% NS 250 ML IVPB PRN (14:01)
[2020-09-24] MEDS ORDERED: Guaifenesin DM 100-10/5 ML UDCUP PO PRN (14:01)
[2020-09-24] MEDS ORDERED: Potassium Chloride 20 MEQ/100 ML PREMIX BAG IVPB PRN (14:01)
[2020-09-24] MEDS ORDERED: Promethazine HCl 25 MG/ML VIAL IM PRN (14:01)
[2020-09-24] MEDS ORDERED: Mag-Al 1200 mg/1200 mg/30 ML UDCUP PO PRN (14:01)
[2020-09-24 14:33] LABS: Actual Bicarbonate (HCO3a) 21.7 mEq/L (22-28); Base Excess (BEa) -2.6 mEq/L (-2.0 to +3.0); CO2 Tension 36.1 mmHg (35.0-45.0); Calcium, Ionized (arterial) 1.18 mmol/L (1.12-1.30); Carboxyhemoglobin (COHb) 0.2 gm% (0.0-3.0); O2 Tension (PaO2), arterial 210.3 mmHg (> 80.0); Potassium - ABG Lab 4.06 mmol/L (3.70-5.30)
[2020-09-24 14:36] LABS: ALV-art Gradient 169.375 mmHg (0-20); Puncture Site ALINE
[2020-09-24] MEDS: Lactated Ringer's 1,000 ML IV SCH (14:37)
[2020-09-24 14:39] LABS: #Eosinphils 0.1 thou/uL (0.0-0.7); #Monocytes 0.6 thou/uL (0.11-0.59); #Neutrophils 8.8 thou/uL (1.40-6.50); %Basophils 0.2 % (0.0-1.0); %Eosinophils 0.6 % (0.0-10.0); %Lymphocytes 17.2 % (21.0-51.0); %Monocytes 5.4 % (0.0-10.0); %Neutrophils 76.5 % (42.0-75.0); Hemoglobin 11.5 g/dL (14.0-18.0); Mean Corpuscular HGB CONC 34.4 g/dL (32.0-36.0); Mean Corpuscular Hemoglobin 35.3 pg (27.0-31.0); Mean Platelet Volume 7.5 fL (7.4-10.4); Platelet Count 115 thou/uL (130-400); RBC Distribution Width 11.3 % (11.5-14.5); Red Blood Cell (RBC) Count 3.26 mill/uL (4.70-6.10); White Blood Cell (WBC) Count 11.5 thou/uL (4.8-10.8)
[2020-09-24 14:44] LABS: INR-International Normal Ratio 1.1; PTT 33.8 sec (22.9-36.1); Prothrombin Time 14.8 sec (12.0-14.7)
[2020-09-24] MEDS ORDERED: Dextrose 5% in Water 1,000 ML IV PRN (14:45)
[2020-09-24] MEDS ORDERED: Insulin Regular 300 UNITS/3 ML VIAL SC PRN (14:45)
[2020-09-24] MEDS ORDERED: HUMULIN R 100 UNITS in Sodium Chloride 0.9% 100 ML IVPB SCH (14:45)
[2020-09-24] MEDS ORDERED: Dextrose 50% Abboject 50 ML SYRINGE SLOW IVP PRN (14:45)
[2020-09-24] MEDS ORDERED: Morphine 4 MG/ML VIAL ONE (14:48)
--- NOTE | 2020-09-24 14:48 | RAD ---
CHEST 1 VIEW PORTABLE: Date: 09/24/2020 HISTORY: Postop open heart, needle count. FINDINGS: Supine postop open heart chest x-ray dated 09/24/2020 at 1400 hours is evaluated. Endotracheal tube, chest tubes, and right central lines are noted. There does appear to be some minimal linear lucency o verlying the left heart border, possibly very tiny pneumothorax or pneumomediastinum. Mild increased markings are noted in the perihilar regions, but these are stable when compared to the prior 09/22/20 study. No evidence for an obvious needle. IMPRESSION: 1. Recent postop midline sternotomy. 2. Possible very tiny amount of air along the left heart border. 3. No evidence for an overt retained needle. Findings discussed with Herminia nurse who was with the patient in the OR. CODE CR. POS: RRE
[2020-09-24 14:49] LABS: Anion Gap 15 mmol/L (10-20); BUN (Urea Nitrogen) 7 mg/dL (8.4-25.7); Calc. Creatinine Clearance 114 mL/min (70-130); Carbon Dioxide 18 mmol/L (22-29); Chloride 110 mmol/L (98-107); Estimated GFR-MDRD Greater than 90; Glucose 133 mg/dL (70-105); Potassium 4.1 mmol/L (3.5-5.1); Sodium 139 mmol/L (136-145)
[2020-09-24] MEDS: Fentanyl 100 MCG/2 ML VIAL SLOW IVP PRN ×2 (14:53→23:53)
[2020-09-24 15:07] LABS: MDiff Complete? YES; Platelet Morphology Comment Appears Decreased; Polychromasia SLIGHT = 2-3 cells (100X) (0-2/hpf)
[2020-09-24] MEDS: Ketorolac Tromethamine 30 MG/ML VIAL IVP SCH ×2 (17:03→23:43)
[2020-09-24] MEDS: CEFAZOLIN 2 GM in Premix Bag 1 BAG IVPB SCH (17:03)
[2020-09-24 17:43] LABS: Glucose 163 mg/dL (70-105)
[2020-09-24 18:13] LABS: Actual Bicarbonate (HCO3a) 19.8 mEq/L (22-28); Base Excess (BEa) -2.2 mEq/L (-2.0 to +3.0); CO2 Tension 26.7 mmHg (35.0-45.0); Calcium, Ionized (arterial) 1.07 mmol/L (1.12-1.30); Carboxyhemoglobin (COHb) 0.5 gm% (0.0-3.0); Hemoglobin (Hb) 13.1 g/dL (14.0-18.0); O2 Tension (PaO2), arterial 129.7 mmHg (> 80.0); pH, Arterial 7.49 (7.35-7.45)
[2020-09-24 18:17] LABS: Puncture Site LINE
[2020-09-24 18:18] LABS: ALV-art Gradient 122.125 mmHg (0-20)
[2020-09-24 20:12] LABS: Hemoglobin 12.7 g/dL (14.0-18.0)
[2020-09-24] MEDS: Atorvastatin Calcium 20 MG TAB PO SCH (20:19)
[2020-09-24] MEDS: Famotidine/PF 20 mg/2ml Vial SLOW IVP SCH (20:19)
[2020-09-24 20:29] LABS: Potassium 4.2 mmol/L (3.5-5.1)
[2020-09-24 20:44] LABS: Glucose 151 mg/dL (70-105)
[2020-09-25] MEDS: CEFAZOLIN 2 GM in Premix Bag 1 BAG IVPB SCH ×2 (01:59→08:19)
[2020-09-25] MEDS: Fentanyl 100 MCG/2 ML VIAL SLOW IVP PRN (03:10)
[2020-09-25 04:25] LABS: #Lymphocytes 2.1 thou/uL (1.20-3.40); #Monocytes 1.1 thou/uL (0.11-0.59); #Neutrophils 7.6 thou/uL (1.40-6.50); %Basophils 0.3 % (0.0-1.0); %Eosinophils 0.2 % (0.0-10.0); %Lymphocytes 19.1 % (21.0-51.0); %Monocytes 9.9 % (0.0-10.0); %Neutrophils 70.6 % (42.0-75.0); Hemoglobin 11.8 g/dL (14.0-18.0); Mean Corpuscular Hemoglobin 35.3 pg (27.0-31.0); Mean Platelet Volume 8.4 fL (7.4-10.4); Platelet Count 139 thou/uL (130-400); RBC Distribution Width 11.4 % (11.5-14.5); Red Blood Cell (RBC) Count 3.33 mill/uL (4.70-6.10); White Blood Cell (WBC) Count 10.8 thou/uL (4.8-10.8)
[2020-09-25 04:43] LABS: Anion Gap 13 mmol/L (10-20); BUN (Urea Nitrogen) 7 mg/dL (8.4-25.7); Calc. Creatinine Clearance 105 mL/min (70-130); Carbon Dioxide 23 mmol/L (22-29); Chloride 107 mmol/L (98-107); Estimated GFR-MDRD Greater than 90; Glucose 131 mg/dL (70-105); Potassium 4.2 mmol/L (3.5-5.1); Sodium 139 mmol/L (136-145)
[2020-09-25] MEDS: Ketorolac Tromethamine 30 MG/ML VIAL IVP SCH ×4 (05:29→23:36)
[2020-09-25] MEDS: HYDROcodone/Acetaminophen 5/325 mg Tablet PO PRN ×4 (06:28→20:59)
[2020-09-25] MEDS: Lactated Ringer's 1,000 ML IV SCH (07:12)
--- NOTE | 2020-09-25 07:59 | RAD ---
Chest AP view INDICATION: Status post open-heart surgery COMPARISON: Prior exam dated September 24, 2020 FINDINGS: Lungs: Patient has been intervally extubated. There is worsening airspace disease of the left lower lobe. Cardiac silhouette: Pneumomediastinum appears to be resolving. Midline mediastinal drains are stable . Midline sternotomy wires and post-CABG changes similar. Pulmonary vasculature: Normal Pleural spaces: No pneumothorax. No pleural effusion. Upper abdomen: No abnormality seen. Osseous structures: No acute osseous abnormality. Additional findings: Right subclavian central venous catheter is unchanged in position. The patient has been intervally extubated. IMPRESSION: Resolving pneumomediastinum. Increased airspace disease of the left lower lobe may reflect developing subsegmental atelectasis, pneumonia or aspiration. Recommend continued radiographic follow-up. Interval extubation. No pneumothorax.
[2020-09-25] MEDS: Polyethylene Glycol 3350 17 GM Packet PO SCH (08:20)
[2020-09-25] MEDS: Famotidine/PF 20 mg/2ml Vial SLOW IVP SCH (08:20)
--- NOTE | 2020-09-25 08:40 | PRG ---
DATE OF SERVICE: The patient is now postoperative day #1 following a six vessel bypass grafting. He is awake, alert, and comfortable with no complaints except for soreness in his left arm. His chest tube output total is 450 mL. His chest x-ray is clear. His creatinine is 0.67, hemoglobin 11.8, and his sugars have been only mildly elevated. His heart rate is about 100, blood pressure . The femoral line has been removed. His lungs are clear. Plan at this time is to transfer him to the telemetry unit and begin low-dose beta jeyson. I have counseled him on chest protection if he needs to cough, but otherwise he seems to be doing well at this juncture. Job ID: [id number]
--- NOTE | 2020-09-25 08:54 | PRG ---
DATE OF SERVICE: 09/25/2020 SUBJECTIVE: Mr. Hudson did well with his bypass surgery yesterday. OBJECTIVE: VITAL SIGNS: Blood pressure is in the one teens, pulse 82 and regular. LUNGS: Clear. CARDIAC: Normal S1, normal S2. ABDOMEN: Soft, nontender. EXTREMITIES: No edema. ASSESSMENT: 1. Status post [id number] infarction. 2. Status post bypass surgery. PLAN: The patient is doing well. beta blockers once blood pressure allows. Continue aspirin and statin. Job ID: [id number]
[2020-09-25] MEDS ORDERED: Aspirin 325 MG TAB PO SCH (09:00)
--- NOTE | 2020-09-25 09:30 | PDOC.HOSPP ---
- Subjective Encounter Date: 09/25/20 Encounter Time: 11:45 Subjective: Patient with sore chest from surgery, but otherwise doing well. Patient is determined to quit smoking now. - Objective Vital Signs & Weight: Vital Signs (12 hours) Pulse Resp Pulse Ox 09/25/20 06:44 100 19 96 09/25/20 00:00 98 09/24/20 23:51 100 18 100 Weight Weight 152 lb Most Recent Monitor Data Heart Rate from ECG 94 NIBP 124/71 NIBP BP-Mean 88 Respiration from ECG 23 SpO2 97 I&O: 09/24/20 09/25/20 09/26/20 06:59 06:59 06:59 Intake Total 3218.9 200 Output Total 2216 90 Balance 1002.9 110 Result Diagrams: 09/25/20 03:30 09/25/20 03:30 Additional Labs: Accuchecks 09/25/20 09/24/20 09/24/20 00:33 22:54 13:34 POC Glucose 117 H 105 H 130 H 09/24/20 09/24/20 09/24/20 13:02 12:31 12:01 POC Glucose 153 H 159 H 143 H 09/24/20 09/24/20 11:29 10:33 POC Glucose 115 H 93 Hospitalist ROS - Review of Systems Constitutional: denies: fever, chills Respiratory: denies: cough, shortness of breath Cardiovascular: reports: chest pain. denies: palpitations Gastrointestinal: denies: nausea, vomiting, abdominal pain - Medication Medications: Active Medications Generic Name Dose Route Start Last Admin Trade Name Freq PRN Reason Stop Dose Admin Hydrocodone Bitart/Acetaminophen 2 tab 09/24/20 14:01 09/25/20 06:28 Hydrocodone/Acetaminophen 5/325 Mg Tablet PO 2 tab Q4H PRN Administration Severe Pain (7-10) Albuterol/Ipratropium 3 ml 09/24/20 19:00 09/25/20 06:44 Ipratropium/Albuterol Sulfate 3 Ml Neb NEB 3 ml [id number] WES Administration Aspirin 325 mg 09/25/20 09:00 09/25/20 08:20 Aspirin 325 Mg Tab PO 325 mg DAILY WES Administration Atorvastatin Calcium 20 mg 09/24/20 21:00 09/24/20 20:19 Atorvastatin Calcium 20 Mg Tab PO 20 mg HS WES Administration Famotidine 20 mg 09/24/20 21:00 09/25/20 08:20 Famotidine/Pf 20 Mg/2ml Vial SLOW IVP 20 mg Q12HR WES Administration Fentanyl 50 mcg 09/24/20 14:01 09/25/20 03:10 Fentanyl 100 Mcg/2 Ml Vial SLOW IVP 09/26/20 13:57 50 mcg Q2H PRN Administration Severe Pain (7-10) Nitroglycerin/Dextrose 250 mls @ 0 mls/hr 09/24/20 14:01 09/24/20 14:37 Nitroglycerin 50 Mg/250 Ml Bot IVPB 250 mls PRN PRN Administration To Maintain SBP< 140mmHG Protocol Titrate Cefazolin Sodium/Dextrose 2 gm 50 mls @ 100 mls/hr 09/24/20 18:00 09/25/20 08:19 / Device IVPB 09/25/20 10:29 50 mls 0200,1000,1800 WES Administration Lactated Ringer's 1,000 mls @ 70 mls/hr 09/24/20 14:01 09/25/20 07:12 Lactated Ringer's IV Not Given .[id number] WES Insulin Human Regular 0 units 09/24/20 14:45 09/24/20 15:47 Insulin Regular 300 Units/3 Ml Vial SC 3 unit Q4H PRN Administration POST OP SLIDING SCALE Protocol Ketorolac Tromethamine 15 mg 09/24/20 18:00 09/25/20 05:29 Ketorolac Tromethamine 30 Mg/Ml Vial IVP 09/27/20 18:01 15 mg Q6HR WES Administration Ondansetron HCl 4 mg 09/24/20 14:01 09/24/20 17:04 Ondansetron Pf 4 Mg/2 Ml Vial IVP 4 mg Q6H PRN Administration Nausea/Vomiting Polyethylene Glycol 17 gm 09/25/20 09:00 09/25/20 08:20 Polyethylene Glycol 3350 17 Gm Packet PO 17 gm DAILY WES Administration - Exam General Appearance: NAD, awake alert ENT: moist mucosa Heart: RRR, no murmur, no gallops, no rubs Heart - other findings: sternotomy incision with dressing c/d/i Respiratory: CTAB, no wheezes, no rales, no ronchi Respiratory - other findings: chest tube in place Gastrointestinal: soft, non-tender, non-distended, normal bowel sounds Psychiatric: normal affect, normal behavior, A&O x 3 Hosp A/P (1) Non-STEMI (non-ST elevated myocardial infarction) Code(s): I21.4 - NON-ST ELEVATION (NSTEMI) MYOCARDIAL INFARCTION Status: Acute (2) CAD (coronary artery disease) Code(s): I25.10 - ATHSCL HEART DISEASE OF [place] CORONARY ARTERY W/O ANG PCTRS Status: Acute (3) Right upper lobe pulmonary nodule Code(s): R91.1 - SOLITARY PULMONARY NODULE Status: Acute (4) ETOH abuse Code(s): F10.10 - ALCOHOL ABUSE, UNCOMPLICATED Status: Chronic (5) Hypertension Code(s): I10 - ESSENTIAL (PRIMARY) HYPERTENSION Status: Chronic (6) Marijuana abuse Code(s): F12.10 - CANNABIS ABUSE, UNCOMPLICATED Status: Chronic (7) Tobacco abuse Code(s): Z72.0 - TOBACCO USE Status: Chronic - Plan 60/M with PMH HTN (noncompliant) and smoking presents for chest pain. Admit telemetry floor, inpatient status. Expected length of stay greater than 2 midnights. Presented hypertensive and tachycardic, with NL RR/SPO2, afebrile. EKG sinus tachycardia, incomplete RBBB, T inversions lateral leads CXR diffuse bilateral interstitial prominence, RUL pulm. nodule. Initial troponin 0.301, CK-MB 5.0, DD 0.56 WBC 13 #Non-STEMI Heart score 5, Wells PE score 1.5. Order CTA chest. Trend troponins, check FLP, BMP, mag, UA/UDS. Continue aspirin, LMWH 1 mg/kg, Nitropaste Start statin, morphine as needed N.p.o. for now Consult cardiology Order echocardiogram. #NSTEMI Had cardiac cath this morning. #CAD- severe multivessel disease needing urgent CABG, Dr. Miramontes consulted and 6 vessel CABG performed 09/24/2020, now in ICU #Bilateral pulmonary infiltrates on chest x-ray with bronchitis on CTA, no pneumonia Presented stable afebrile, RR, Sp02. WBCs 13,000. #Right upper lobe pulmonary nodule on CXR with bilateral nodules on CTA Recommend repeat CT chest in 6 months Will need follow up outpatient. #Hypertension Monitor and treat as needed. #Tobacco abuse 2 pack/day x 30-year habit. Unwilling to quit. Nicotine patch. 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 #Marijuana abuse Smokes 1 joint per day. Unwilling to quit. Check UDS for coingestants. #EtOH abuse Endorses 3-4 rum and coke daily. Never been admitted for EtOH withdrawals. Initiated ASE protocol for nursing. DVT prophylaxis- on Lovenox for the NSTEMI. Pepcid for GI prophylaxis. Full code. Designated contact is Karen, spouse, .
--- NOTE | 2020-09-25 10:13 | OP ---
DATE OF PROCEDURE: 09/24/2020 PREOPERATIVE DIAGNOSES: Coronary artery disease, status post [id number] myocardial infarction. PROCEDURE PERFORMED: Emergency coronary artery bypass graft x6, left internal mammary artery to a 2 mm clean LAD, radial artery to a clean 2 mm OM1, saphenous vein to a 1.5 mm acute marginal, saphenous vein to a 1.5 diagonal, saphenous vein as a sequential graft to the right PDA and the second obtuse marginal. CAFE ATTENDANT: Dr. Wallace. TRANSFUSION: None. DESCRIPTION OF PROCEDURE: After adequate anesthesia had been obtained, the patient was prepped and draped, and I harvested the left radial artery after ensuring good collateral flow. Dr. Wallace did an open vein harvest of the left greater saphenous vein. Following which, I performed a median sternotomy. The left internal mammary artery was harvested. The patient heparinized, mammary divided distally and passed posterior to the thymus gland. Aorta and right atrium were cannulated and cardiopulmonary bypass begun. The patient's heart was somewhat large, although not particularly in the form of LVH. Aorta was cross-clamped, and after a liter of cold blood cardioplegia, the right acute marginal, the diagonal and then sequentially the PDA and then [id number] to the OM2 were completed. Radial artery to OM1 was completed and then the CARBONE to LAD. Cross-clamp was removed, partial occluding clamp placed, and three venous anastomoses were placed on the aortic root and marked with rings. The radial artery graft was placed about 1 cm from the aortic root on top of the diagonal vein graft. Following completion of this, the patient was weaned from cardiopulmonary bypass. Cannula was removed and protamine given systemically. Aortic cannulation site was secured with a 4-0 Prolene suture. Mediastinal drains x2 were placed, following which the sternum was reapproximated with #7 interrupted wire, using vancomycin paste on the sternal edges, platelet-rich blood and platelet-poor plasma. Subcutaneous tissue and skin were closed in layers. Job ID: [id number]
[2020-09-25] MEDS ORDERED: Aspirin 325 mg Enteric Coated Tablet PO SCH (12:57)
[2020-09-25] MEDS ORDERED: Metoprolol Tartrate 25 MG TAB PO SCH ×2 (12:57→21:00)
[2020-09-25] MEDS ORDERED: Nitroglycerin 0.4 MG TAB (25 Tab Bottle) SL PRN (12:57)
[2020-09-25] MEDS ORDERED: Famotidine 20 MG TAB PO SCH (12:57)
[2020-09-25] MEDS ORDERED: Zolpidem Tartrate 5 MG TAB PO PRN (12:57)
[2020-09-25] MEDS ORDERED: Mineral Oil ENEMA PR PRN (12:57)
[2020-09-25] MEDS: Famotidine 20 MG TAB PO SCH (20:59)
[2020-09-25] MEDS: Atorvastatin Calcium 20 MG TAB PO SCH (20:59)
--- NOTE | 2020-09-25 21:09 | EKG ---
Test Reason : POSTOP Blood Pressure : / mmHG Vent. Rate : 072 BPM Atrial Rate : 072 BPM P-R Int : 128 ms QRS Dur : 108 ms QT Int : 562 ms P-R-T Axes : 046 052 185 degrees QTc Int : 615 ms Normal sinus rhythm Prolonged QT Abnormal ECG When compared with ECG of 22-SEP-2020 13:17, (Unconfirmed) Incomplete left bundle branch block is no longer Present ST now depressed in Anterior leads T wave inversion now evident in Anterior leads QT has lengthened Confirmed by Ayanna STYLES ([id number]) on 09/25/2020 9:08:35 PM Referred By: MAMI Confirmed By:Ayanna STYLES
[2020-09-26] MEDS: Ketorolac Tromethamine 30 MG/ML VIAL IVP SCH ×4 (05:07→23:29)
[2020-09-26] MEDS ORDERED: Potassium Chloride 10 MEQ TAB PO SCH (08:00)
--- NOTE | 2020-09-26 08:58 | PDOC.HOSPP ---
- Subjective Encounter Date: 09/26/20 Encounter Time: 10:00 Subjective: Patient feeling better. Chest soreness doing better. Ambulating well with cardiac rehab. Some sore throat, asking if he can use his cough drops he has at bedside which I told him was ok. - Objective Vital Signs & Weight: Vital Signs (12 hours) Temp Pulse Pulse Pulse Resp BP BP 09/26/20 08:15 92 88 142/67 H 172/78 H 09/26/20 07:53 98.6 F 100 16 09/26/20 07:19 92 16 09/26/20 04:00 98.0 F 83 16 09/26/20 00:17 BP Pulse Ox Pulse Ox Pulse Ox 09/26/20 08:15 95 97 09/26/20 07:53 175/83 H 94 L 09/26/20 07:19 100 09/26/20 04:00 119/92 H 94 L 09/26/20 00:17 92 L Weight Weight 152 lb 14.4 oz Most Recent Monitor Data Heart Rate from ECG 86 NIBP 132/75 NIBP BP-Mean 94 Respiration from ECG 25 SpO2 91 I&O: 09/25/20 09/26/20 09/27/20 06:59 06:59 06:59 Intake Total 3218.9 1000 Output Total 2216 550 Balance 1002.9 450 Result Diagrams: 09/25/20 03:30 09/25/20 03:30 Additional Labs: Accuchecks 09/26/20 09/25/20 09/25/20 05:14 19:46 15:19 POC Glucose 118 H 134 H 125 H Hospitalist ROS - Review of Systems Constitutional: denies: fever, chills ENT: reports: throat pain Respiratory: denies: cough, shortness of breath Cardiovascular: denies: palpitations Gastrointestinal: denies: nausea, vomiting, abdominal pain - Medication Medications: Active Medications Generic Name Dose Route Start Last Admin Trade Name Freq PRN Reason Stop Dose Admin Hydrocodone Bitart/Acetaminophen 2 tab 09/24/20 14:01 09/25/20 20:59 Hydrocodone/Acetaminophen 5/325 Mg Tablet PO 2 tab Q4H PRN Administration Severe Pain (7-10) Albuterol/Ipratropium 3 ml 09/24/20 19:00 09/26/20 07:19 Ipratropium/Albuterol Sulfate 3 Ml Neb NEB 3 ml [id number] WES Administration Famotidine 20 mg 09/25/20 21:00 09/25/20 20:59 Famotidine 20 Mg Tab PO 20 mg BID WES Administration Fentanyl 50 mcg 09/24/20 14:01 09/25/20 03:10 Fentanyl 100 Mcg/2 Ml Vial SLOW IVP 09/26/20 13:57 50 mcg Q2H PRN Administration Severe Pain (7-10) Ketorolac Tromethamine 15 mg 09/24/20 18:00 09/26/20 05:07 Ketorolac Tromethamine 30 Mg/Ml Vial IVP 09/27/20 18:01 15 mg Q6HR WES Administration Polyethylene Glycol 17 gm 09/25/20 09:00 09/25/20 08:20 Polyethylene Glycol 3350 17 Gm Packet PO 17 gm DAILY WES Administration - Exam General Appearance: NAD, awake alert ENT: moist mucosa Heart: RRR, no murmur, no gallops, no rubs Heart - other findings: incision with dressing C/D/I Respiratory: no wheezes, no ronchi Respiratory - other findings: some crackles on left side, good air movement Gastrointestinal: soft, non-tender, non-distended, normal bowel sounds Musculoskeletal: normal tone, normal strength Psychiatric: normal affect, normal behavior, A&O x 3 Hosp A/P (1) Non-STEMI (non-ST elevated myocardial infarction) Code(s): I21.4 - NON-ST ELEVATION (NSTEMI) MYOCARDIAL INFARCTION Status: Acute (2) CAD (coronary artery disease) Code(s): I25.10 - ATHSCL HEART DISEASE OF [place] CORONARY ARTERY W/O ANG PCTRS Status: Acute (3) Right upper lobe pulmonary nodule Code(s): R91.1 - SOLITARY PULMONARY NODULE Status: Acute (4) ETOH abuse Code(s): F10.10 - ALCOHOL ABUSE, UNCOMPLICATED Status: Chronic (5) Hypertension Code(s): I10 - ESSENTIAL (PRIMARY) HYPERTENSION Status: Chronic (6) Marijuana abuse Code(s): F12.10 - CANNABIS ABUSE, UNCOMPLICATED Status: Chronic (7) Tobacco abuse Code(s): Z72.0 - TOBACCO USE Status: Chronic - Plan 60/M with PMH HTN (noncompliant) and smoking presents for chest pain. #NSTEMI #CAD- severe multivessel disease needing urgent CABG, Dr. Miramontes consulted and 6 vessel CABG performed 09/24/2020, now doing well and out of ICU. #Bilateral pulmonary infiltrates on chest x-ray with bronchitis on CTA, no pneumonia Presented stable afebrile, RR, Sp02. WBCs 13,000 on admit, now normalized. #Right upper lobe pulmonary nodule on CXR with bilateral nodules on CTA Recommend repeat CT chest in 6 months Will need follow up outpatient. #Hypertension Monitor and treat as needed. #Tobacco abuse 2 pack/day x 30-year habit though more sporadic recently Now ready to quit. Nicotine patch. 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 #Marijuana abuse Smokes 1 joint per day. Unwilling to quit. Checked UDS for coingestants- negative #EtOH abuse Endorses 3-4 rum and coke daily. Never been admitted for EtOH withdrawals. Initiated ASE protocol for nursing. Cardiac rehab and placement when ok with CV surg and Cards. DVT prophylaxis- on Lovenox for the NSTEMI. Pepcid for GI prophylaxis. Full code. Designated contact is Karen, spouse, .
[2020-09-26] MEDS ORDERED: Amlodipine 5 MG TAB PO SCH (09:00)
[2020-09-26] MEDS: Furosemide 40 MG TAB PO SCH (09:03)
[2020-09-26] MEDS: Aspirin 325 mg Enteric Coated Tablet PO SCH (09:04)
[2020-09-26] MEDS: Famotidine 20 MG TAB PO SCH ×2 (09:04→19:20)
[2020-09-26] MEDS: Polyethylene Glycol 3350 17 GM Packet PO SCH (09:06)
--- NOTE | 2020-09-26 09:13 | PRG ---
DATE OF SERVICE: 09/26/2020 SUBJECTIVE: Mr. Hudson is feeling well this morning. OBJECTIVE: VITAL SIGNS: His blood pressure is 178 systolic, pulse is in the 80s and sinus. LUNGS: Clear. CARDIAC: Normal S1 and normal S2. ABDOMEN: Soft and nontender. EXTREMITIES: No edema. ASSESSMENT: 1. Status post emergency coronary artery bypass grafting for severe three-vessel coronary artery disease. 2. Hypertension. PLAN: 1. Metoprolol succinate. 2. Add amlodipine. 3. He has had a little bit of a cough. I do not want to give him an AMOS inhibitor at this time. Also his ejection fraction is normal. 4. Increase beta-jeyson tomorrow, probably home in a couple of days. Job ID: [id number]
[2020-09-26] MEDS: Atorvastatin Calcium 40 MG TAB PO SCH (19:20)
[2020-09-26] MEDS: HYDROcodone/Acetaminophen 5/325 mg Tablet PO PRN (19:20)
[2020-09-26] MEDS ORDERED: Atorvastatin Calcium 20 MG TAB PO SCH (21:00)
[2020-09-27 05:08] LABS: #Lymphocytes 2.1 thou/uL (1.20-3.40); #Monocytes 0.8 thou/uL (0.11-0.59); #Neutrophils 5.1 thou/uL (1.40-6.50); %Basophils 0.1 % (0.0-1.0); %Eosinophils 0.4 % (0.0-10.0); %Lymphocytes 26.1 % (21.0-51.0); %Monocytes 9.7 % (0.0-10.0); %Neutrophils 63.7 % (42.0-75.0); Hemoglobin 11.6 g/dL (14.0-18.0); Mean Corpuscular HGB CONC 34.9 g/dL (32.0-36.0); Mean Corpuscular Hemoglobin 35.9 pg (27.0-31.0); Mean Platelet Volume 7.7 fL (7.4-10.4); Platelet Count 160 thou/uL (130-400); RBC Distribution Width 11.5 % (11.5-14.5); Red Blood Cell (RBC) Count 3.23 mill/uL (4.70-6.10); White Blood Cell (WBC) Count 8.1 thou/uL (4.8-10.8)
[2020-09-27] MEDS: Ketorolac Tromethamine 30 MG/ML VIAL IVP SCH (05:28)
[2020-09-27 05:29] LABS: Anion Gap 13 mmol/L (10-20); BUN (Urea Nitrogen) 7 mg/dL (8.4-25.7); Calc. Creatinine Clearance 120 mL/min (70-130); Calcium 8.8 mg/dL (7.8-10.44); Carbon Dioxide 25 mmol/L (22-29); Chloride 101 mmol/L (98-107); Estimated GFR-MDRD Greater than 90; Glucose 109 mg/dL (70-105); Potassium 3.3 mmol/L (3.5-5.1); Sodium 136 mmol/L (136-145)
--- NOTE | 2020-09-27 06:39 | PRG ---
DATE OF SERVICE: 09/27/2020 The patient's blood pressure has been somewhat on the high side over the past 24 hours and his heart rate has been 80 to 90 with sinus rhythm. He had repeat labs showing hemoglobin of 11.6 and a creatinine of 0.67. His potassium was slightly low. Weight remains still slightly over preop weight. Surprisingly, the patient only walks two short walks yesterday despite emphasis on the need for multiple walks during the day. He appears slightly dyspneic lying in bed; however, his lungs are clear to auscultation. His dressing is still present and he has a small stain on his dressing on his chest. BRUNA hose are in place with no edema. Plan today is shower. We will give additional potassium and adjust his blood pressure medications. Job ID: [id number]
--- NOTE | 2020-09-27 07:20 | PDOC.HOSPP ---
- Subjective Encounter Date: 09/27/20 Encounter Time: 08:55 Subjective: Patient was doing well until got up to get a drink of water today. When sat back down felt light headed. New onset Afib with RVR to 250 noted on monitor. Patient noted to be confused and SOB per nursing. Vagal maneuvers unsuccessful so given single 200J syncronized shock with return to sinus rhythm. Being moved to C07 in the ICU. Dr. Smith has seen and started patient on Amiodarone drip, potassium, magnesium. - Objective Vital Signs & Weight: Vital Signs (12 hours) Temp Pulse Resp BP BP Pulse Ox 09/27/20 03:27 98.4 F 80 18 141/75 H 09/27/20 03:20 80 141/75 H 09/27/20 00:42 96 09/26/20 20:00 98.8 F 95 18 175/82 H 98 Weight Weight 160 lb Most Recent Monitor Data Heart Rate from ECG 86 NIBP 132/75 NIBP BP-Mean 94 Respiration from ECG 25 SpO2 91 I&O: 09/26/20 09/27/20 09/28/20 06:59 06:59 06:59 Intake Total 1000 1210 Output Total 550 Balance 450 1210 Result Diagrams: 09/27/20 04:52 09/27/20 08:37 Additional Labs: Accuchecks 09/27/20 09/26/20 09/26/20 00:04 20:04 17:11 POC Glucose 98 128 H 108 H 09/26/20 09/25/20 10:46 23:38 POC Glucose 122 H 120 H Hospitalist ROS - Review of Systems Constitutional: denies: fever, chills, weakness Respiratory: denies: cough, shortness of breath Cardiovascular: reports: chest pain (from shock, no pain/sedation meds in the crash cart to premedicate). denies: palpitations Gastrointestinal: denies: nausea, vomiting, abdominal pain - Medication Medications: Active Medications Generic Name Dose Route Start Last Admin Trade Name Freq PRN Reason Stop Dose Admin Hydrocodone Bitart/Acetaminophen 2 tab 09/24/20 14:01 09/26/20 19:20 Hydrocodone/Acetaminophen 5/325 Mg Tablet PO 2 tab Q4H PRN Administration Severe Pain (7-10) Albuterol/Ipratropium 3 ml 09/24/20 19:00 09/27/20 00:42 Ipratropium/Albuterol Sulfate 3 Ml Neb NEB 3 ml [id number] WES Administration Aspirin 325 mg 09/26/20 09:00 09/26/20 09:04 Aspirin 325 Mg Enteric Coated Tablet PO 325 mg DAILY WES Administration Atorvastatin Calcium 40 mg 09/26/20 21:00 09/26/20 19:20 Atorvastatin Calcium 40 Mg Tab PO 40 mg HS WES Administration Famotidine 20 mg 09/25/20 21:00 09/26/20 19:20 Famotidine 20 Mg Tab PO 20 mg BID WES Administration Furosemide 40 mg 09/26/20 09:00 09/26/20 09:03 Furosemide 40 Mg Tab PO 40 mg DAILY WES Administration Hydralazine HCl 10 mg 09/24/20 14:01 09/27/20 03:20 Hydralazine 20 Mg/Ml Vial SLOW IVP 10 mg Q6H PRN Administration To Maintain SBP< 140mmHG Metoprolol Succinate 25 mg 09/26/20 09:00 09/26/20 09:41 Metoprolol Succinate Xl 25 Mg Tab PO 25 mg DAILY WES Administration Polyethylene Glycol 17 gm 09/25/20 09:00 09/26/20 09:06 Polyethylene Glycol 3350 17 Gm Packet PO 17 gm DAILY WES Administration Sodium Chloride 10 ml 09/26/20 09:00 09/26/20 19:32 Flush - Normal Saline 10 Ml Syringe IVF 10 ml Q12HR WES Administration - Exam General Appearance: NAD, awake alert ENT: moist mucosa Heart: RRR, no murmur, no gallops, no rubs Respiratory: CTAB, no wheezes, no rales, no ronchi Gastrointestinal: soft, non-tender, non-distended, normal bowel sounds Psychiatric: normal affect, normal behavior, A&O x 3 Hosp A/P (1) Non-STEMI (non-ST elevated myocardial infarction) Code(s): I21.4 - NON-ST ELEVATION (NSTEMI) MYOCARDIAL INFARCTION Status: Acute (2) CAD (coronary artery disease) Code(s): I25.10 - ATHSCL HEART DISEASE OF [place] CORONARY ARTERY W/O ANG PCTRS Status: Acute (3) Right upper lobe pulmonary nodule Code(s): R91.1 - SOLITARY PULMONARY NODULE Status: Acute (4) ETOH abuse Code(s): F10.10 - ALCOHOL ABUSE, UNCOMPLICATED Status: Chronic (5) Hypertension Code(s): I10 - ESSENTIAL (PRIMARY) HYPERTENSION Status: Chronic (6) Marijuana abuse Code(s): F12.10 - CANNABIS ABUSE, UNCOMPLICATED Status: Chronic (7) Tobacco abuse Code(s): Z72.0 - TOBACCO USE Status: Chronic (8) Atrial fibrillation with RVR Code(s): I48.91 - UNSPECIFIED ATRIAL FIBRILLATION Status: Resolved - Plan 60/M with PMH HTN (noncompliant) and smoking presents for chest pain. #NSTEMI #CAD- severe multivessel disease needing urgent CABG, Dr. Miramontes consulted and 6 vessel CABG performed 09/24/2020, now doing well and out of ICU. #Postop Afib with extreme RVR to 250 on 09/27/2020, resolved with cardioversion and amiodarone drip. #Bilateral pulmonary infiltrates on chest x-ray with bronchitis on CTA, no pneumonia Presented stable afebrile, RR, Sp02. WBCs 13,000 on admit, now normalized. #Right upper lobe pulmonary nodule on CXR with bilateral nodules on CTA Recommend repeat CT chest in 6 months Will need follow up outpatient. #Hypertension Monitor and treat as needed. #Tobacco abuse 2 pack/day x 30-year habit though more sporadic recently Now ready to quit. Nicotine patch. 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 #Marijuana abuse Smokes 1 joint per day. Unwilling to quit. Checked UDS for coingestants- negative #EtOH abuse Endorses 3-4 rum and coke daily. Never been admitted for EtOH withdrawals. Initiated ASE protocol for nursing. Cardiac rehab and placement when ok with CV surg and Cards. DVT prophylaxis- on Lovenox for the NSTEMI. Pepcid for GI prophylaxis. Full code. Designated contact is Karen, spouse, .
[2020-09-27] MEDS ORDERED: Potassium Chloride 40 MEQ in Sodium Chloride 0.9% 250 ML 250 ML IVPB SCH (08:45)
[2020-09-27] MEDS ORDERED: Magnesium Sulfate 3 GM in Sodium Chloride 0.9% 100 ML IVPB SCH (08:45)
[2020-09-27] MEDS ORDERED: Amiodarone 150 MG in Dextrose 5% in Water 100 ML IVPB SCH (09:00)
[2020-09-27 09:22] LABS: ALT (SGPT) 16 U/L (8-55); AST (SGOT) 38 U/L (5-34); Albumin 3.6 g/dL (3.5-5.0); Alkaline Phosphatase 52 U/L (40-110); Anion Gap 15 mmol/L (10-20); BUN (Urea Nitrogen) 7 mg/dL (8.4-25.7); Bilirubin, Total 0.9 mg/dL (0.2-1.2); Calc. Creatinine Clearance 112 mL/min (70-130); Calcium 9.4 mg/dL (7.8-10.44); Carbon Dioxide 23 mmol/L (22-29); Chloride 102 mmol/L (98-107); Estimated GFR-MDRD Greater than 90; Globulin 3.3 g/dL (2.4-3.5); Glucose 127 mg/dL (70-105); Magnesium 2.1 mg/dL (1.6-2.6); Potassium 3.8 mmol/L (3.5-5.1); Protein, Total 6.9 g/dL (6.0-8.3); Sodium 136 mmol/L (136-145)
[2020-09-27 09:47] LABS: CKMB 2.7 ng/mL (0-6.6)
--- NOTE | 2020-09-27 09:59 | PRG ---
DATE OF SERVICE: 09/27/2020 SUBJECTIVE: Initially when I went on rounds for Mr. Hudson, he said he is feeling well. He had been up walking around yesterday in the halls, progressing nicely, feeling well. He is having no chest pain or pressure. His blood pressure is 180 systolic. He was about to receive his morning medicine. OBJECTIVE: VITAL SIGNS: The initial blood pressure as mentioned was 180 systolic with the pulse in the 80 range, sinus. LUNGS: Clear. CARDIAC: Normal S1, normal S2. ABDOMEN: Soft, nontender. EXTREMITIES: Warm, dry. No clubbing. No cyanosis. No edema. Very short time after that, the patient developed atrial fibrillation with a very rapid ventricular response with what looks like a left bundle pattern on the EKG, clearly irregular and when in the room, the patient was not mentating properly, clearly hypoperfusing and the heart rate was 250. The patient was hemodynamically unstable and not mentating appropriately. Therefore, the leads were placed, the patches were placed quickly and he was given 200 joules of direct current synchronized energy. Unfortunately, there was no Versed or Valium in the cart. He had to be shocked while awake, but he tolerated adequately and went to sinus rhythm. The patient is resting comfortably now. He is now receiving intravenous amiodarone. We will also give potassium and magnesium. EKG did not show any ST elevation, just T-wave inversion as before. ASSESSMENT: 1. Severe three-vessel coronary artery disease. 2. Recent bypass surgery. 3. Atrial fibrillation with an extremely rapid ventricular response, 250 beats per minute, tolerated poorly. PLAN: 1. He was started on intravenous amiodarone. 2. Move to the intensive care unit. 3. Intravenous potassium, magnesium. 4. Ejection fraction was 30% preoperatively. We will recheck echocardiogram in the postoperative period. Job ID: [id number]
[2020-09-27] MEDS: Aspirin 325 mg Enteric Coated Tablet PO SCH (10:22)
[2020-09-27] MEDS: Famotidine 20 MG TAB PO SCH ×2 (10:22→21:00)
[2020-09-27] MEDS: Potassium Chloride 20 MEQ TAB PO SCH (10:22)
[2020-09-27] MEDS: Amlodipine 5 MG TAB PO SCH ×2 (10:23→21:54)
[2020-09-27] MEDS: Furosemide 40 MG TAB PO SCH (10:24)
[2020-09-27] MEDS: Polyethylene Glycol 3350 17 GM Packet PO SCH (10:25)
[2020-09-27] MEDS ORDERED: Amiodarone 150 MG/3 ML VIAL ONE (13:06)
[2020-09-27 13:28] LABS: Critical Call Chem Troponin I RESULT DECREASING; Troponin I 0.582 ng/mL (< 0.028)
[2020-09-27] MEDS: Amiodarone 450 MG in Dextrose 5% in Water 250 ML IVPB SCH (14:01)
[2020-09-27 17:10] LABS: Troponin I 0.526 ng/mL (< 0.028)
[2020-09-27] MEDS: HYDROcodone/Acetaminophen 5/325 mg Tablet PO PRN ×2 (18:16→21:55)
--- NOTE | 2020-09-27 18:23 | CON ---
DATE OF CONSULTATION: 09/27/2020 HISTORY OF PRESENT ILLNESS: I am seeing Mr. 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 His problems are; 1. New onset of post bypass atrial fibrillation with rapid ventricular rates, requiring acute cardioversion: a. Currently in sinus rhythm on IV amiodarone loading. 2. Ischemic cardiomyopathy: a. Presentation with [id number] myocardial infarction on 09/23/2020. b. Left heart catheterization from 09/24/2020, demonstrates 3-vessel disease. c. Status post CABG x6 vessels by Dr. Miramontes on 09/24/2020. 3. History of tobacco dependence. 4. History of hypertension. ALLERGIES: NONE NOTED. MEDICATIONS: At home included, Tylenol only. Currently, the patient is on; 1. [place] p.r.n. 2. Maalox. 3. DuoNeb. 4. Norvasc. 5. Aspirin. 6. Lipitor. 7. Dulcolax. 8. Pepcid. 9. Robitussin. 10. Apresoline. 11. Toprol-XL. 12. Nitrostat. 13. MiraLAX. 14. Ambien. 15. IV amiodarone. SUBJECTIVE: Mr. Hudson is currently doing good. Denies angina or CHF like symptoms. No PND or orthopnea. Post thoracotomy surgical scar discomfort is present, but he is healing adequately from the recent surgery. While on telemetry floor, on postoperative day #2, he developed a sudden episode of atrial fibrillation with rapid rates. This was unprovoked. The rates are extremely rapid, reaching up to 250 beats per minute. He had hemodynamic compromise with these rapid rates and had an emergent cardioversion on the floor, transferred to ICU for IV amiodarone loading, since maintaining sinus rhythm. Prior to the admission, he had history of chest tightness and chest pain sensations ongoing for a couple of weeks. He denies prior history of palpitations or atrial fibrillation. No history of bleeding issues. No stroke-like symptoms noted either. REVIEW OF SYSTEMS: Rest of 12-point review of system otherwise unremarkable. PAST MEDICAL HISTORY: As above. SOCIAL HISTORY: The patient is a smoker. Does enjoy 3 to 4 rums and Coke drinks a day. Never had withdrawal like symptoms. He does use marijuana on a regular basis. No additional drug use. FAMILY HISTORY: Not contributory. OBJECTIVE DATA: VITAL SIGNS: Currently blood pressure is 155/83, heart rate 81, respirations 12, temperature 97.6 degrees Fahrenheit. GENERAL: Reveals alert and oriented man, in no apparent distress. NECK: Supple. Jugular veins not distended. CHEST: Coarse without crackles. HEART: Sounds are regular to rate and rhythm. No murmur or gallop. ABDOMEN: Benign. Bowel sounds positive. EXTREMITIES: Lower extremities without edema, clubbing, or cyanosis. Pulses are adequate. NEUROLOGIC: The patient is nonfocal. MUSCULOSKELETAL: Without joint swelling or deformities. SKIN: Without rash. The midsternal scar is approximated and without reaction. DATABASE: The EKG is reviewed in detail, revealing sinus rhythm, rate of 95 beats per minute, left ventricular hypertrophy with nonspecific ST-T changes. Possible repolarization abnormality versus ischemia on presentation in the lateral leads only. QRS is narrow at 104 milliseconds. IN interval is 124 milliseconds. Multilead telemetry on presentation of the atrial fibrillation reveals rapid rates ranging from 220 to 250 beats per minute. The heart beats are fairly irregular although on occasion, some organization of atrial fibrillation seen, still could represent atrial fibrillation versus atrial flutter with somewhat variable AV conduction. LABORATORY DATA: White cell count is 8.1, hemoglobin 11.6, platelet count is 160. INR is 1.1. Sodium 136, potassium 3.8, BUN is 7, creatinine 0.72. Troponin-I is 0.3, increasing to 5.1 on the 1st on presentation. Repeat troponin 0.686 and 0.582 consecutively. ASSESSMENT AND PLAN: Mr. Hudson is a pleasant 60-year-old man with newly found 3-vessel coronary artery disease, also echocardiogram suggestive of ischemic cardiomyopathy. He had undergone a bypass surgery, which he seems to have tolerated well, but developed a very rapid atrial fibrillation with rapid rates 2 days postoperatively. He required acute cardioversion and now is maintaining sinus rhythm on continued amiodarone use. My plans at this point; 1. Postoperative atrial fibrillation, not unusual in occurrence, but the rates are rapid. On reviewing the rhythm strips, I do not suspect evidence of accessory pathway. No QRS morphology changes noted during atrial fibrillation to baseline. I agree with the initiated IV amiodarone, which should be tapered gradually to a 200 mg dose within the next 3 weeks. Intermediate term of amiodarone therapy is recommended for next 2 to 3 months, after which I would consider discontinuing amiodarone and monitor for recurrent atrial arrhythmias. 2. We discussed the implication of chronic amiodarone use, pros and cons, potential long-term side effects. 3. Ischemic cardiomyopathy with reduced LVEF at 30% with inferior wall akinesis. Consider followup echocardiogram to assess LVEF at least 3 months post bypass surgery. 4. Consider anticoagulation once it is feasible from the surgical standpoint. 5. Happy to see this gentleman back after his 90-day echocardiogram is complete to assess his candidacy for prophylactic ICD implant. Also his amiodarone could be loaded by then and possibly discontinue prior to that, also can assist with the monitoring for atrial fibrillation future treatment options if recurrence is noted after full recovery from bypass surgery. Thank you for allowing me to participate in the care of this patient. Discussed with Dr. Smith, we have to see this gentleman back next week if still inpatient, otherwise I will see him as an outpatient as above. Job ID: [id number] MTDD
[2020-09-27] MEDS: Atorvastatin Calcium 40 MG TAB PO SCH (21:54)
[2020-09-28] MEDS: Amiodarone 450 MG in Dextrose 5% in Water 250 ML IVPB SCH ×2 (03:44→21:04)
[2020-09-28 04:41] LABS: #Eosinphils 0.1 thou/uL (0.0-0.7); #Lymphocytes 2.8 thou/uL (1.20-3.40); #Monocytes 0.9 thou/uL (0.11-0.59); #Neutrophils 4.5 thou/uL (1.40-6.50); %Basophils 0.5 % (0.0-1.0); %Eosinophils 1.6 % (0.0-10.0); %Lymphocytes 33.8 % (21.0-51.0); %Monocytes 10.1 % (0.0-10.0); %Neutrophils 53.9 % (42.0-75.0); Hemoglobin 11.4 g/dL (14.0-18.0); Mean Corpuscular HGB CONC 34.4 g/dL (32.0-36.0); Mean Corpuscular Hemoglobin 35.8 pg (27.0-31.0); Platelet Count 205 thou/uL (130-400); RBC Distribution Width 11.4 % (11.5-14.5); Red Blood Cell (RBC) Count 3.18 mill/uL (4.70-6.10); White Blood Cell (WBC) Count 8.4 thou/uL (4.8-10.8)
[2020-09-28 05:16] LABS: Anion Gap 13 mmol/L (10-20); BUN (Urea Nitrogen) 8 mg/dL (8.4-25.7); Calc. Creatinine Clearance 119 mL/min (70-130); Calcium 8.7 mg/dL (7.8-10.44); Carbon Dioxide 25 mmol/L (22-29); Chloride 103 mmol/L (98-107); Estimated GFR-MDRD Greater than 90; Glucose 101 mg/dL (70-105); Potassium 3.5 mmol/L (3.5-5.1); Sodium 137 mmol/L (136-145)
[2020-09-28] MEDS: HYDROcodone/Acetaminophen 5/325 mg Tablet PO PRN ×4 (07:14→20:57)
[2020-09-28] MEDS: Potassium Chloride 20 MEQ TAB PO SCH (08:14)
[2020-09-28] MEDS: Polyethylene Glycol 3350 17 GM Packet PO SCH (08:14)
[2020-09-28] MEDS: Furosemide 40 MG TAB PO SCH (08:15)
[2020-09-28] MEDS: Amlodipine 5 MG TAB PO SCH ×2 (08:15→20:55)
[2020-09-28] MEDS: Aspirin 325 mg Enteric Coated Tablet PO SCH (08:16)
[2020-09-28] MEDS: Famotidine 20 MG TAB PO SCH ×2 (08:16→20:56)
--- NOTE | 2020-09-28 08:20 | PDOC.HOSPP ---
- Subjective Encounter Date: 09/28/20 Encounter Time: 11:00 Subjective: Patient doing well. No chest pain. No further arrhythmia/tachycardia. - Objective Vital Signs & Weight: Vital Signs (12 hours) Temp Pulse Resp BP Pulse Ox 09/28/20 08:15 74 123/73 09/28/20 07:23 100 09/28/20 07:16 74 21 H 09/28/20 05:00 98.9 F 09/28/20 00:00 98.4 F 09/27/20 21:54 76 131/71 Weight Weight 161 lb 2.526 oz Most Recent Monitor Data Heart Rate from ECG 66 NIBP 123/73 NIBP BP-Mean 89 Respiration from ECG 16 SpO2 94 I&O: 09/27/20 09/28/20 09/29/20 06:59 06:59 06:59 Intake Total 1210 1240 0 Output Total 850 Balance 1210 390 0 Result Diagrams: 09/28/20 03:52 09/28/20 03:52 Additional Labs: Accuchecks 09/27/20 08:33 POC Glucose 111 H Hospitalist ROS - Review of Systems Constitutional: denies: fever, chills Respiratory: denies: cough, shortness of breath Cardiovascular: denies: chest pain, palpitations Gastrointestinal: denies: nausea, vomiting, abdominal pain - Medication Medications: Active Medications Generic Name Dose Route Start Last Admin Trade Name Freq PRN Reason Stop Dose Admin Hydrocodone Bitart/Acetaminophen 2 tab 09/24/20 14:01 09/28/20 07:14 Hydrocodone/Acetaminophen 5/325 Mg Tablet PO 2 tab Q4H PRN Administration Severe Pain (7-10) Albuterol/Ipratropium 3 ml 09/24/20 19:00 09/28/20 07:16 Ipratropium/Albuterol Sulfate 3 Ml Neb NEB 3 ml [id number] WES Administration Amlodipine Besylate 5 mg 09/27/20 09:00 09/28/20 08:15 Amlodipine 5 Mg Tab PO 5 mg Q12HR WES Administration Aspirin 325 mg 09/26/20 09:00 09/28/20 08:16 Aspirin 325 Mg Enteric Coated Tablet PO 325 mg DAILY WES Administration Atorvastatin Calcium 40 mg 09/26/20 21:00 09/27/20 21:54 Atorvastatin Calcium 40 Mg Tab PO 40 mg HS WES Administration Famotidine 20 mg 09/25/20 21:00 09/28/20 08:16 Famotidine 20 Mg Tab PO 20 mg BID WES Administration Furosemide 40 mg 09/26/20 09:00 09/28/20 08:15 Furosemide 40 Mg Tab PO 40 mg DAILY WES Administration Hydralazine HCl 10 mg 09/24/20 14:01 09/27/20 03:20 Hydralazine 20 Mg/Ml Vial SLOW IVP 10 mg Q6H PRN Administration To Maintain SBP< 140mmHG Amiodarone HCl 450 mg/ 259 mls @ 0 mls/hr 09/27/20 09:00 09/28/20 03:44 Dextrose/Water IVPB 259 mls INF WES Administration Protocol Per Protocol Metoprolol Succinate 50 mg 09/27/20 09:00 09/28/20 08:16 Metoprolol Succinate Xl 25 Mg Tab PO 50 mg DAILY WES Administration Polyethylene Glycol 17 gm 09/25/20 09:00 09/28/20 08:14 Polyethylene Glycol 3350 17 Gm Packet PO 17 gm DAILY WES Administration Potassium Chloride 20 meq 09/27/20 08:00 09/28/20 08:14 Potassium Chloride 20 Meq Tab PO 20 meq QAM-WM WES Administration Sodium Chloride 10 ml 09/26/20 09:00 09/27/20 21:55 Flush - Normal Saline 10 Ml Syringe IVF 10 ml Q12HR WES Administration - Exam General Appearance: NAD, awake alert ENT: moist mucosa Heart: RRR, no murmur, no gallops, no rubs Heart - other findings: sternotomy incision well closed without drainage/swelling/erythema Respiratory: CTAB, no wheezes, no rales, no ronchi Gastrointestinal: soft, non-tender, non-distended, normal bowel sounds Psychiatric: normal affect, normal behavior, A&O x 3 Hosp A/P (1) Non-STEMI (non-ST elevated myocardial infarction) Code(s): I21.4 - NON-ST ELEVATION (NSTEMI) MYOCARDIAL INFARCTION Status: Acute (2) Atrial fibrillation with RVR Code(s): I48.91 - UNSPECIFIED ATRIAL FIBRILLATION Status: Resolved (3) CAD (coronary artery disease) Code(s): I25.10 - ATHSCL HEART DISEASE OF [place] CORONARY ARTERY W/O ANG PCTRS Status: Acute (4) Right upper lobe pulmonary nodule Code(s): R91.1 - SOLITARY PULMONARY NODULE Status: Acute (5) ETOH abuse Code(s): F10.10 - ALCOHOL ABUSE, UNCOMPLICATED Status: Chronic (6) Hypertension Code(s): I10 - ESSENTIAL (PRIMARY) HYPERTENSION Status: Chronic (7) Marijuana abuse Code(s): F12.10 - CANNABIS ABUSE, UNCOMPLICATED Status: Chronic (8) Tobacco abuse Code(s): Z72.0 - TOBACCO USE Status: Chronic - Plan 60/M with PMH HTN (noncompliant) and smoking presents for chest pain. #NSTEMI #CAD- severe multivessel disease needing urgent CABG, Dr. Miramontes consulted and 6 vessel CABG performed 09/24/2020. #Postop Afib with extreme RVR to 250 on 09/27/2020, resolved with cardioversion and amiodarone drip. Dr. Moran consulted and wants to wean down to 200mg dose over 2-3 weeks, no other intervention. #Bilateral pulmonary infiltrates on chest x-ray with bronchitis on CTA, no pneumonia Presented stable afebrile, RR, Sp02. WBCs 13,000 on admit, now normalized. #Right upper lobe pulmonary nodule on CXR with bilateral nodules on CTA Recommend repeat CT chest in 6 months Will need follow up outpatient. #Hypertension Monitor and treat as needed. #Tobacco abuse 2 pack/day x 30-year habit though more sporadic recently Now ready to quit. Nicotine patch. Gun Number on smoking cessation.. #Marijuana abuse Smokes 1 joint per day. Unwilling to quit. Checked UDS for coingestants- negative #EtOH abuse Endorses 3-4 rum and coke daily. Never been admitted for EtOH withdrawals. Initiated ASE protocol for nursing. Cardiac rehab and placement when ok with CV surg and Cards. DVT prophylaxis- on Lovenox for the NSTEMI. Pepcid for GI prophylaxis. Full code. Designated contact is Karen, spouse, .
[2020-09-28] MEDS: Atorvastatin Calcium 40 MG TAB PO SCH (20:55)
[2020-09-29] MEDS: HYDROcodone/Acetaminophen 5/325 mg Tablet PO PRN ×4 (02:30→19:59)
[2020-09-29] MEDS: Potassium Chloride 20 MEQ TAB PO SCH (08:31)
[2020-09-29] MEDS: Amlodipine 5 MG TAB PO SCH ×2 (08:32→20:57)
[2020-09-29] MEDS: Apixaban 5 MG TAB PO SCH ×2 (08:33→20:58)
[2020-09-29] MEDS: Furosemide 40 MG TAB PO SCH (08:34)
[2020-09-29] MEDS: Famotidine 20 MG TAB PO SCH ×2 (08:34→20:56)
[2020-09-29] MEDS: Polyethylene Glycol 3350 17 GM Packet PO SCH (08:35)
[2020-09-29] MEDS: Aspirin 325 mg Enteric Coated Tablet PO SCH (09:04)
[2020-09-29] MEDS ORDERED: Amiodarone 200 MG TAB PO SCH (09:45)
[2020-09-29] MEDS ORDERED: Carvedilol 6.25 MG TAB PO SCH (09:45)
--- NOTE | 2020-09-29 10:39 | PDOC.HOSPP ---
- Subjective Encounter Date: 09/29/20 Encounter Time: 10:38 Subjective: Mr. Hudson was seen today in follow-up of AFIB post CABG. He notes a little soreness in his chest, but otherwise no complaints. He was notes to have some losse stools, but he notes having this every since his surgery. - Objective Vital Signs & Weight: Vital Signs (12 hours) Temp Pulse BP Pulse Ox 09/29/20 09:49 143/76 H 09/29/20 08:32 71 143/76 H 09/29/20 08:00 97.5 F L 09/29/20 07:35 97 09/29/20 05:00 98.5 F 09/29/20 01:00 98.4 F Weight Weight 165 lb 5.547 oz Most Recent Monitor Data Heart Rate from ECG 70 NIBP 166/86 NIBP BP-Mean 112 Respiration from ECG 26 SpO2 94 I&O: 09/28/20 09/29/20 09/30/20 06:59 06:59 06:59 Intake Total 1240 3173 571 Output Total 850 2000 Balance 390 1173 571 Result Diagrams: 09/28/20 03:52 09/28/20 03:52 Hospitalist ROS - Medication Medications: Active Medications Generic Name Dose Route Start Last Admin Trade Name Freq PRN Reason Stop Dose Admin Hydrocodone Bitart/Acetaminophen 1 tab 09/24/20 14:01 09/29/20 02:30 Hydrocodone/Acetaminophen 5/325 Mg Tablet PO 1 tab Q4H PRN Administration Moderate Pain (4-6) Hydrocodone Bitart/Acetaminophen 2 tab 09/24/20 14:01 09/29/20 08:37 Hydrocodone/Acetaminophen 5/325 Mg Tablet PO 2 tab Q4H PRN Administration Severe Pain (7-10) Albuterol/Ipratropium 3 ml 09/24/20 19:00 09/29/20 08:53 Ipratropium/Albuterol Sulfate 3 Ml Neb NEB Not Given [id number] WES Amiodarone HCl 400 mg 09/29/20 09:45 09/29/20 09:48 Amiodarone 200 Mg Tab PO 09/29/20 12:00 400 mg NOW WES Administration Amlodipine Besylate 5 mg 09/27/20 09:00 09/29/20 08:32 Amlodipine 5 Mg Tab PO 5 mg Q12HR WES Administration Apixaban 5 mg 09/29/20 09:00 09/29/20 08:33 Apixaban 5 Mg Tab PO 5 mg BID WES Administration Aspirin 81 mg 09/29/20 05:50 09/29/20 09:04 Aspirin 325 Mg Enteric Coated Tablet PO 81 mg DAILY WES Administration Atorvastatin Calcium 40 mg 09/26/20 21:00 09/28/20 20:55 Atorvastatin Calcium 40 Mg Tab PO 40 mg HS WES Administration Carvedilol 3.125 mg 09/29/20 09:45 09/29/20 09:49 Carvedilol 6.25 Mg Tab PO 09/29/20 12:00 3.125 mg NOW WES Administration Famotidine 20 mg 09/25/20 21:00 09/29/20 08:34 Famotidine 20 Mg Tab PO 20 mg BID WES Administration Furosemide 40 mg 09/26/20 09:00 09/29/20 08:34 Furosemide 40 Mg Tab PO 40 mg DAILY WES Administration Hydralazine HCl 10 mg 09/24/20 14:01 09/27/20 03:20 Hydralazine 20 Mg/Ml Vial SLOW IVP 10 mg Q6H PRN Administration To Maintain SBP< 140mmHG Amiodarone HCl 450 mg/ 259 mls @ 0 mls/hr 09/27/20 09:00 09/28/20 21:04 Dextrose/Water IVPB 09/29/20 12:00 259 mls INF WES Administration Protocol Per Protocol Metoprolol Succinate 50 mg 09/27/20 09:00 09/29/20 08:32 Metoprolol Succinate Xl 25 Mg Tab PO 50 mg DAILY WES Administration Polyethylene Glycol 17 gm 09/25/20 09:00 09/29/20 08:35 Polyethylene Glycol 3350 17 Gm Packet PO Not Given DAILY WES Potassium Chloride 20 meq 09/27/20 08:00 09/29/20 08:31 Potassium Chloride 20 Meq Tab PO 20 meq QAM-WM WES Administration Sodium Chloride 10 ml 09/26/20 09:00 09/29/20 08:35 Flush - Normal Saline 10 Ml Syringe IVF 10 ml Q12HR WES Administration - Exam Eye: PERRL, anicteric sclera Eye - other findings: poor dentition Heart: RRR, no murmur, no gallops, no rubs, normal peripheral pulses Respiratory: CTAB, no wheezes, no rales, no ronchi, normal chest expansion, no t achypnea Gastrointestinal: soft, non-tender, non-distended, normal bowel sounds, no palpable masses, no hepatomegaly Extremities: no cyanosis, no edema Hosp A/P (1) CAD (coronary artery disease) Code(s): I25.10 - ATHSCL HEART DISEASE OF [place] CORONARY ARTERY W/O ANG PCTRS Status: Acute (2) Diarrhea Code(s): R19.7 - DIARRHEA, UNSPECIFIED Status: Acute (3) Non-STEMI (non-ST elevated myocardial infarction) Code(s): I21.4 - NON-ST ELEVATION (NSTEMI) MYOCARDIAL INFARCTION Status: Acute (4) ETOH abuse Code(s): F10.10 - ALCOHOL ABUSE, UNCOMPLICATED Status: Chronic (5) Hypertension Code(s): I10 - ESSENTIAL (PRIMARY) HYPERTENSION Status: Chronic (6) Atrial fibrillation with RVR Code(s): I48.91 - UNSPECIFIED ATRIAL FIBRILLATION Status: Resolved (7) S/P CABG (coronary artery bypass graft) Code(s): Z95.1 - PRESENCE OF AORTOCORONARY BYPASS GRAFT Status: Acute - Plan * CAD- s/p CABG- he developed post=op AFIB. He was placed on Amiodarone drip, which is now being transitioned to p.o. * Continue Eliquis * Continue low dose aspirin, Statin and Carvediolol * Diarrhea- - C. Diff screen is pending * HTN- blood pressure overall is trending down * ? Move out of the ICU
[2020-09-29] MEDS: Carvedilol 3.125 MG TAB PO SCH (16:46)
--- NOTE | 2020-09-29 20:55 | EKG ---
Test Reason : CODE GREEN Blood Pressure : / mmHG Vent. Rate : 086 BPM Atrial Rate : 086 BPM P-R Int : 112 ms QRS Dur : 102 ms QT Int : 396 ms P-R-T Axes : 056 058 152 degrees QTc Int : 473 ms Sinus rhythm with occasional Premature ventricular complexes Left ventricular hypertrophy with repolarization abnormality Abnormal ECG When compared with ECG of 24-SEP-2020 14:25, Premature ventricular complexes are now Present QT has shortened Confirmed by Ayanna STYLES ([id number]) on 09/29/2020 8:54:53 PM Referred By: DARREL Confirmed By:Ayanna STYLES
[2020-09-29] MEDS: Atorvastatin Calcium 40 MG TAB PO SCH (20:56)
[2020-09-29] MEDS: Amiodarone 200 MG TAB PO SCH (20:56)
[2020-09-30] MEDS: HYDROcodone/Acetaminophen 5/325 mg Tablet PO PRN ×5 (03:39→22:45)
[2020-09-30 06:43] VITALS: BMI 24.9
[2020-09-30] MEDS: Potassium Chloride 20 MEQ TAB PO SCH (07:43)
[2020-09-30] MEDS: Carvedilol 3.125 MG TAB PO SCH ×2 (07:43→08:08)
[2020-09-30] MEDS: Aspirin 325 mg Enteric Coated Tablet PO SCH (08:10)
[2020-09-30] MEDS: Famotidine 20 MG TAB PO SCH ×2 (08:10→22:44)
[2020-09-30] MEDS: Furosemide 40 MG TAB PO SCH (08:10)
[2020-09-30] MEDS: Amlodipine 5 MG TAB PO SCH ×2 (08:11→22:44)
[2020-09-30] MEDS: Amiodarone 200 MG TAB PO SCH ×2 (08:11→22:44)
[2020-09-30] MEDS: Lisinopril 5 MG TAB PO SCH ×2 (08:17→22:44)
[2020-09-30] MEDS: Aspirin 81 mg Enteric Coated Tablet PO SCH (08:25)
--- NOTE | 2020-09-30 08:53 | PRG ---
DATE OF SERVICE: 09/30/2020 SUBJECTIVE: Mr. Hudson is awake and alert, feels well. He has had no further atrial arrhythmias. OBJECTIVE: VITAL SIGNS: Blood pressure 135/70, pulse 70, it is regular. LUNGS: Clear. CARDIAC: Normal S1, normal S2. ABDOMEN: Soft, nontender. EXTREMITIES: There is no edema. ASSESSMENT: 1. Status post ane-GY-vcoztigvv myocardial infarction. 2. Previous history of smoking. 3. Hypertension. 4. Atrial fibrillation with a rapid ventricular response, poorly tolerated, requiring cardioversion. PLAN: 1. He has been loaded with intravenous amiodarone oral amiodarone. 2. Beta jeyson. 3. Add AMOS inhibitor. 4. Amlodipine. 5. Recheck echocardiogram. With ejection fraction of 35%, we will need LifeVest before discharge. Otherwise, the patient should be on track to be discharged home tomorrow. Job ID: [id number]
--- NOTE | 2020-09-30 09:43 | PDOC.HOSPP ---
- Subjective Encounter Date: 09/30/20 Encounter Time: 09:41 Subjective: Mr. Hudson was seen today in follow-up of CAD s/p CABG. No complaints today. He denies chest pain or trouble breathing. He has been up walking without difficulty. - Objective Vital Signs & Weight: Vital Signs (12 hours) Temp Pulse Resp BP Pulse Ox 09/30/20 08:51 61 17 99 09/30/20 08:17 70 152/73 H 09/30/20 08:11 70 152/73 H 09/30/20 08:00 97.5 F L 09/30/20 07:03 94 L 09/30/20 04:00 97.6 F 09/30/20 00:00 97.7 F Weight Weight 154 lb 5.177 oz Most Recent Monitor Data Heart Rate from ECG 67 NIBP 133/70 NIBP BP-Mean 91 Respiration from ECG 17 SpO2 100 I&O: 09/29/20 09/30/20 10/01/20 06:59 06:59 06:59 Intake Total 3173 1551 360 Output Total 1999 1600 0 Balance 1173 -49 360 Result Diagrams: 09/28/20 03:52 09/28/20 03:52 Hospitalist ROS - Medication Medications: Active Medications Generic Name Dose Route Start Last Admin Trade Name Freq PRN Reason Stop Dose Admin Hydrocodone Bitart/Acetaminophen 1 tab 09/24/20 14:01 09/29/20 02:30 Hydrocodone/Acetaminophen 5/325 Mg Tablet PO 1 tab Q4H PRN Administration Moderate Pain (4-6) Hydrocodone Bitart/Acetaminophen 2 tab 09/24/20 14:01 09/30/20 08:09 Hydrocodone/Acetaminophen 5/325 Mg Tablet PO 2 tab Q4H PRN Administration Severe Pain (7-10) Albuterol/Ipratropium 3 ml 09/24/20 19:00 09/30/20 08:51 Ipratropium/Albuterol Sulfate 3 Ml Neb NEB 3 ml [id number] WES Administration Amiodarone HCl 400 mg 09/29/20 21:00 09/30/20 08:11 Amiodarone 200 Mg Tab PO 400 mg BID WES Administration Amlodipine Besylate 5 mg 09/27/20 09:00 09/30/20 08:11 Amlodipine 5 Mg Tab PO 5 mg Q12HR WES Administration Aspirin 81 mg 09/30/20 09:00 09/30/20 08:25 Aspirin 81 Mg Enteric Coated Tablet PO Not Given DAILY WES Atorvastatin Calcium 40 mg 09/26/20 21:00 09/29/20 20:56 Atorvastatin Calcium 40 Mg Tab PO 40 mg HS WES Administration Famotidine 20 mg 09/25/20 21:00 09/30/20 08:10 Famotidine 20 Mg Tab PO 20 mg BID WES Administration Furosemide 40 mg 09/26/20 09:00 09/30/20 08:10 Furosemide 40 Mg Tab PO 40 mg DAILY WES Administration Hydralazine HCl 10 mg 09/24/20 14:01 09/27/20 03:20 Hydralazine 20 Mg/Ml Vial SLOW IVP 10 mg Q6H PRN Administration To Maintain SBP< 140mmHG Lisinopril 5 mg 09/30/20 09:00 09/30/20 08:17 Lisinopril 5 Mg Tab PO 5 mg BID WES Administration Metoprolol Succinate 50 mg 09/27/20 09:00 09/30/20 08:10 Metoprolol Succinate Xl 25 Mg Tab PO 50 mg DAILY WES Administration Potassium Chloride 20 meq 09/27/20 08:00 09/30/20 07:43 Potassium Chloride 20 Meq Tab PO 20 meq QAM-WM WES Administration Sodium Chloride 10 ml 09/26/20 09:00 09/29/20 20:58 Flush - Normal Saline 10 Ml Syringe IVF 10 ml Q12HR WES Administration - Exam Eye: PERRL, anicteric sclera Heart: RRR, no murmur, no gallops, no rubs, normal peripheral pulses Respiratory: CTAB, no wheezes, no rales, no ronchi, normal chest expansion Gastrointestinal: soft, non-tender, non-distended, normal bowel sounds, no palpable masses, no hepatomegaly Extremities: no cyanosis, no edema Hosp A/P (1) CAD (coronary artery disease) Code(s): I25.10 - ATHSCL HEART DISEASE OF [place] CORONARY ARTERY W/O ANG PCTRS Status: Acute (2) Diarrhea Code(s): R19.7 - DIARRHEA, UNSPECIFIED Status: Acute (3) Non-STEMI (non-ST elevated myocardial infarction) Code(s): I21.4 - NON-ST ELEVATION (NSTEMI) MYOCARDIAL INFARCTION Status: Acute (4) ETOH abuse Code(s): F10.10 - ALCOHOL ABUSE, UNCOMPLICATED Status: Chronic (5) Hypertension Code(s): I10 - ESSENTIAL (PRIMARY) HYPERTENSION Status: Chronic (6) Atrial fibrillation with RVR Code(s): I48.91 - UNSPECIFIED ATRIAL FIBRILLATION Status: Resolved (7) S/P CABG (coronary artery bypass graft) Code(s): Z95.1 - PRESENCE OF AORTOCORONARY BYPASS GRAFT Status: Acute (8) Tobacco abuse Code(s): Z72.0 - TOBACCO USE Status: Chronic - Plan * CAD- s/p CABG- he developed post-op AFIB. * AFIB with RVR- stable in oral Amiodarone * Continue Eliquis * Continue low dose aspirin, Statin and Carvediolol was changed to Metoprolol * Diarrhea- - C. Diff screen is negative * HTN- blood pressure overall is trending down * Tobacco Abuse- discussed the dangers of continued tobacco abuse. He says he knows he needs to quit. * He has been ok'd for transfer out of the ICU
[2020-09-30 10:44] LABS: #Basophils 0.1 thou/uL (0.0-0.2); #Eosinphils 0.1 thou/uL (0.0-0.7); #Lymphocytes 2.2 thou/uL (1.20-3.40); #Monocytes 0.8 thou/uL (0.11-0.59); #Neutrophils 5.2 thou/uL (1.40-6.50); %Basophils 0.8 % (0.0-1.0); %Eosinophils 1.4 % (0.0-10.0); %Lymphocytes 26.6 % (21.0-51.0); %Monocytes 9.9 % (0.0-10.0); %Neutrophils 61.3 % (42.0-75.0); Hemoglobin 13.2 g/dL (14.0-18.0); Mean Corpuscular HGB CONC 33.7 g/dL (32.0-36.0); Mean Corpuscular Hemoglobin 34.8 pg (27.0-31.0); Mean Platelet Volume 7.7 fL (7.4-10.4); Platelet Count 362 thou/uL (130-400); RBC Distribution Width 11.3 % (11.5-14.5); Red Blood Cell (RBC) Count 3.79 mill/uL (4.70-6.10); White Blood Cell (WBC) Count 8.4 thou/uL (4.8-10.8)
[2020-09-30 10:48] LABS: Actual Bicarbonate (HCO3a) 23.1 mEq/L (22-28); Analyzer IN Cardio OR; Base Excess (BEa) -1.1 mEq/L (-2.0 to +3.0); CO2 Tension 36.5 mmHg (35.0-45.0); Carboxyhemoglobin (COHb) 0.3 gm% (0.0-3.0); Hemoglobin (Hb) 9.7 g/dL (14.0-18.0); O2 Tension (PaO2), arterial 143.6 mmHg (> 80.0); Potassium - ABG Lab 4.22 mmol/L (3.70-5.30); pH, Arterial 7.42 (7.35-7.45)
[2020-09-30 10:48] LABS: Analyzer IN Cardio OR; Base Excess (BEa) -2.5 mEq/L (-2.0 to +3.0); CO2 Tension 36.9 mmHg (35.0-45.0); Calcium, Ionized (arterial) 0.99 mmol/L (1.12-1.30); Carboxyhemoglobin (COHb) 0.5 gm% (0.0-3.0); Hemoglobin (Hb) 9.9 g/dL (14.0-18.0); O2 Tension (PaO2), arterial 394.5 mmHg (> 80.0); Potassium - ABG Lab 4.56 mmol/L (3.70-5.30); pH, Arterial 7.39 (7.35-7.45)
[2020-09-30 10:48] LABS: Analyzer IN Cardio OR; Base Excess (BEa) -0.6 mEq/L (-2.0 to +3.0); CO2 Tension 45.1 mmHg (35.0-45.0); Calcium, Ionized (arterial) 0.97 mmol/L (1.12-1.30); Carboxyhemoglobin (COHb) 0.1 gm% (0.0-3.0); Hemoglobin (Hb) 9.9 g/dL (14.0-18.0); O2 Tension (PaO2), arterial 418.9 mmHg (> 80.0); Potassium - ABG Lab 4.59 mmol/L (3.70-5.30); pH, Arterial 7.36 (7.35-7.45)
[2020-09-30 10:49] LABS: Actual Bicarbonate (HCO3a) 21.3 mEq/L (22-28); Analyzer IN Cardio OR; Base Excess (BEa) -3.8 mEq/L (-2.0 to +3.0); CO2 Tension 38.8 mmHg (35.0-45.0); Calcium, Ionized (arterial) 1.08 mmol/L (1.12-1.30); Carboxyhemoglobin (COHb) 1.4 gm% (0.0-3.0); Hemoglobin (Hb) 13.5 g/dL (14.0-18.0); O2 Tension (PaO2), arterial 199.3 mmHg (> 80.0); pH, Arterial 7.36 (7.35-7.45)
[2020-09-30 10:49] LABS: Actual Bicarbonate (HCO3a) 18.6 mEq/L (22-28); Analyzer IN Cardio OR; Base Excess (BEa) -5.2 mEq/L (-2.0 to +3.0); CO2 Tension 31.4 mmHg (35.0-45.0); Calcium, Ionized (arterial) 1.04 mmol/L (1.12-1.30); O2 Tension (PaO2), arterial 498.6 mmHg (> 80.0); Potassium - ABG Lab 3.47 mmol/L (3.70-5.30); pH, Arterial 7.39 (7.35-7.45)
[2020-09-30 10:49] LABS: Actual Bicarbonate (HCO3a) 23.6 mEq/L (22-28); Analyzer IN Cardio OR; Base Excess (BEa) 0.5 mEq/L (-2.0 to +3.0); CO2 Tension 32.7 mmHg (35.0-45.0); Calcium, Ionized (arterial) 0.99 mmol/L (1.12-1.30); Carboxyhemoglobin (COHb) 0.4 gm% (0.0-3.0); Hemoglobin (Hb) 10.8 g/dL (14.0-18.0); Potassium - ABG Lab 5.56 mmol/L (3.70-5.30); pH, Arterial 7.48 (7.35-7.45)
[2020-09-30 11:05] LABS: Puncture Site ALINE
[2020-09-30 11:05] LABS: Puncture Site ALINE
[2020-09-30 11:06] LABS: Puncture Site ALINE
[2020-09-30 11:06] LABS: Puncture Site ALINE
[2020-09-30 11:07] LABS: Puncture Site ALINE
[2020-09-30 11:07] LABS: Puncture Site ALINE
[2020-09-30 11:23] LABS: Anion Gap 14 mmol/L (10-20); BUN (Urea Nitrogen) 10 mg/dL (8.4-25.7); Calc. Creatinine Clearance 97 mL/min (70-130); Calcium 9.4 mg/dL (7.8-10.44); Carbon Dioxide 25 mmol/L (22-29); Chloride 101 mmol/L (98-107); Estimated GFR-MDRD Greater than 90; Glucose 108 mg/dL (70-105); Potassium 4.3 mmol/L (3.5-5.1); Sodium 136 mmol/L (136-145)
[2020-09-30] MEDS ORDERED: Potassium Chloride 20 MEQ TAB PO SCH (12:00)
--- NOTE | 2020-09-30 17:25 | PDOC.EP ---
- Subjective Date: 09/30/20 Time: 17:20 Interval History: follow up for atrial fibrillation and cardiomyopathy - Review of Systems Constitutional: reports: weakness. denies: chills, fever, malaise, sweats Respiratory: reports: shortness of breath. denies: cough, hemoptysis, pleuritic pain, sputum, wheezing Cardiology: denies: chest pain, edema, heart racing, light headedness, palpitations, swelling Gastrointestinal: denies: abdominal pain, constipation, nausea, vomitting Musculoskeletal: denies: unstable gait, falls, leg pain - Objective Allergies/Adverse Reactions: Allergies Allergy/AdvReac Type Severity Reaction Status Date / Time No Known Allergies Allergy Verified 09/22/20 22:04 Current Medications Acetaminophen (Acetaminophen 325 Mg Tab) 650 mg PO Q6H PRN PRN Reason: Headache/Fever/Mild Pain (1-3) Hydrocodone Bitart/Acetaminophen (Hydrocodone/Acetaminophen 5/325 Mg Tablet) 1 tab PO Q4H PRN PRN Reason: Moderate Pain (4-6) Last Admin: 09/29/20 02:30 Dose: 1 tab Documented by: Hydrocodone Bitart/Acetaminophen (Hydrocodone/Acetaminophen 5/325 Mg Tablet) 2 tab PO Q4H PRN PRN Reason: Severe Pain (7-10) Last Admin: 09/30/20 16:45 Dose: 2 tab Documented by: Al Hydroxide/Mg Hydroxide (Mag-Al 1200 Mg/1200 Mg/30 Ml Udcup) 30 ml PO Q4H PRN PRN Reason: Indigestion Albuterol/Ipratropium (Ipratropium/Albuterol Sulfate 3 Ml Neb) 3 ml NEB [id number] [facility] Last Admin: 09/30/20 14:56 Dose: Not Given Documented by: Albuterol/Ipratropium (Ipratropium/Albuterol Sulfate 3 Ml Neb) 3 ml NEB Q6H PRN PRN Reason: SOB Amiodarone HCl (Amiodarone 200 Mg Tab) 400 mg PO BID [facility] Last Admin: 09/30/20 08:11 Dose: 400 mg Documented by: Amlodipine Besylate (Amlodipine 5 Mg Tab) 5 mg PO Q12HR [facility] Last Admin: 09/30/20 08:11 Dose: 5 mg Documented by: Aspirin (Aspirin 81 Mg Enteric Coated Tablet) 81 mg PO DAILY [facility] Last Admin: 09/30/20 08:25 Dose: Not Given Documented by: Atorvastatin Calcium (Atorvastatin Calcium 40 Mg Tab) 40 mg PO HS [facility] Last Admin: 09/29/20 20:56 Dose: 40 mg Documented by: Bisacodyl (Bisacodyl 5 Mg Tab) 10 mg PO Q12H PRN PRN Reason: Constipation Bisacodyl (Bisacodyl 10 Mg Supp) 10 mg [place] Q12H PRN PRN Reason: Constipation Famotidine (Famotidine 20 Mg Tab) 20 mg PO BID [facility] Last Admin: 09/30/20 08:10 Dose: 20 mg Documented by: Furosemide (Furosemide 40 Mg Tab) 40 mg PO DAILY [facility] Last Admin: 09/30/20 08:10 Dose: 40 mg Documented by: Guaifenesin/Dextromethorphan (Guaifenesin Dm 100-10/5 Ml Udcup) 15 ml PO Q4H PRN PRN Reason: Cough Hydralazine HCl (Hydralazine 20 Mg/Ml Vial) 10 mg SLOW IVP Q6H PRN PRN Reason: To Maintain SBP< 140mmHG Last Admin: 09/27/20 03:20 Dose: 10 mg Documented by: Lisinopril (Lisinopril 5 Mg Tab) 5 mg PO BID [facility] Last Admin: 09/30/20 08:17 Dose: 5 mg Documented by: Metoprolol Succinate (Metoprolol Succinate Xl 25 Mg Tab) 50 mg PO DAILY [facility] Last Admin: 09/30/20 08:10 Dose: 50 mg Documented by: Mineral Oil (Mineral Oil Enema) 133 ml [place] DAILYPRN PRN PRN Reason: Constipation Nitroglycerin (Nitroglycerin 0.4 Mg Tab (25 Tab Bottle)) 0.4 mg SL Q5MIN PRN PRN Reason: Chest Pain Potassium Chloride (Potassium Chloride 20 Meq Tab) 20 meq PO QAM-WM [facility] Last Admin: 09/30/20 07:43 Dose: 20 meq Documented by: Sodium Chloride (Flush - Normal Saline 10 Ml Syringe) 10 ml IVF Q12HR [facility] Last Admin: 09/30/20 08:35 Dose: 10 ml Documented by: Sodium Chloride (Flush - Normal Saline 10 Ml Syringe) 10 ml IVF PRN PRN PRN Reason: Saline Flush Zolpidem Tartrate (Zolpidem Tartrate 5 Mg Tab) 5 mg PO HSPRN PRN PRN Reason: Insomnia Vital Signs & Weight: Vital Signs Temp Pulse Pulse Pulse Resp BP BP 09/30/20 15:21 09/30/20 14:53 97.5 F L 67 15 09/30/20 13:47 67 65 141/80 H 09/30/20 12:00 97.7 F 09/30/20 09:45 76 67 09/30/20 08:51 61 17 09/30/20 08:17 70 152/73 H 09/30/20 08:11 70 152/73 H 09/30/20 08:00 97.5 F L 09/30/20 07:03 BP BP Pulse Ox Pulse Ox 09/30/20 15:21 94 L 09/30/20 14:53 157/75 H 94 L 09/30/20 13:47 156/88 H 09/30/20 12:00 09/30/20 09:45 155/77 H 97 09/30/20 08:51 99 09/30/20 08:17 09/30/20 08:11 09/30/20 08:00 09/30/20 07:03 94 L Weight 154 lb 5.177 oz I/O: I/O 09/29/20 09/30/20 10/01/20 06:59 06:59 06:59 Intake Total 3173 1551 600 Output Total 2000 1600 1350 Balance 8742 -34 -179 - Quality Measures Condition: Atrial Fibrillation/Flutter (hx or current) - Physical Exam General: alert & oriented x3, appears well, no apparent distress, speech clear, affect appropriate HEENT: mucus membranes moist, normocephaly Neck: supple neck, midline trachea, no lymphadenopathy Cardiology: regular rate and rhythm, no murmur, PMI nondisplaced Lungs: clear to auscultation, normal breath sounds, no wheeze, rales, rhonchi Neurology: cranial nerve 2-12 intact, grossly intact, no lateralizing findings Abdomen: unremarkable, active bowel sounds, no pulsations/bruits - Labs Result Diagrams: 09/30/20 10:23 09/30/20 10:23 - EKG Interpretation EKG Method: Telemetry EKG shows: Sinus rhythm - Assessment/Plan Assessment/Plan: 1. CAD with CABG 09/24/2020 2. Atrial fibrillation RVR - post op s/p emergent CV 09/27 - OAC stopped due to post CABG bleed concern and no further AF on tele - amidoarone loading taper ongoing 3. Cardiomyopathy -LVEF 30% - Lifevest ordered Remains in SR, now on tele. Continue amiodarone loading taper and GDMT. Recommend continuing amiodarone 2-3 months post CABG then stopping and montioring for recurrent arrhythmias. OAC upon DC may be considered, especially if recurrent AF is seen, discussed with cardiology, agree with holding for now. Repeat echo in >90 day, if LVEF </=35% consider primary prevention dual chamber ICD implant.
[2020-09-30] MEDS: Atorvastatin Calcium 40 MG TAB PO SCH (22:44)
[2020-10-01] MEDS: HYDROcodone/Acetaminophen 5/325 mg Tablet PO PRN ×4 (04:24→20:37)
--- NOTE | 2020-10-01 07:15 | PRG ---
DATE OF SERVICE: 10/01/2020 The patient's blood pressure recorded yesterday is about 150 on two occasions, heart rates in the 60s and sinus rhythm. His weight is 154 compared to 152. He has now switched from IV amiodarone to p.o. amiodarone. He walked well with physical therapy yesterday. Cardiac echo shows EF 30% to 35%. At this time, the patient is probably ready for discharge with the only consideration being whether he needs a LifeVest or not and Dr. Smith is considering the options here. His Lasix can be stopped at the time of discharge and he can continue on his metoprolol, lisinopril, atorvastatin, aspirin, amiodarone, and amlodipine. We will follow up with him in 2 to 3 weeks. Job ID: [id number]
--- NOTE | 2020-10-01 07:47 | PDOC.HOSPP ---
- Subjective Encounter Date: 10/01/20 Encounter Time: 08:20 Subjective: Mr. Hudson is being followed for CAD and is S/P CABG. He stated he slept well and is doing better each day. Patient denied any new symptoms or pain. He does endorse continued chest pain at surgical incision site rated as a 7 out of 10. - Objective Vital Signs & Weight: Vital Signs (12 hours) Temp Pulse Resp BP Pulse Ox 10/01/20 07:28 66 14 100 10/01/20 04:15 98.1 F 61 16 130/67 97 10/01/20 00:50 16 09/30/20 22:44 65 09/30/20 20:28 98.9 F 65 22 H 129/67 95 09/30/20 20:00 95 Weight Weight 154 lb Most Recent Monitor Data Heart Rate from ECG 68 NIBP 146/87 NIBP BP-Mean 106 Respiration from ECG 15 SpO2 100 I&O: 09/30/20 10/01/20 10/02/20 06:59 06:59 06:59 Intake Total 1551 1050 Output Total 1600 1350 Balance -49 -300 Result Diagrams: 09/30/20 10:23 09/30/20 10:23 Hospitalist ROS - Review of Systems Constitutional: denies: fever, chills, sweats Respiratory: reports: cough, sputum. denies: dry, shortness of breath, hemoptysis Cardiovascular: denies: chest pain, palpitations Gastrointestinal: reports: nausea, diarrhea. denies: vomiting, constipation Neurological: denies: weakness, numbness - Medication Medications: Active Medications Generic Name Dose Route Start Last Admin Trade Name Heq PRN Reason Stop Dose Admin Hydrocodone Bitart/Acetaminophen 1 tab 09/24/20 14:01 10/01/20 04:24 Hydrocodone/Acetaminophen 5/325 Mg Tablet PO 1 tab Q4H PRN Administration Moderate Pain (4-6) Hydrocodone Bitart/Acetaminophen 2 tab 09/24/20 14:01 09/30/20 16:45 Hydrocodone/Acetaminophen 5/325 Mg Tablet PO 2 tab Q4H PRN Administration Severe Pain (7-10) Albuterol/Ipratropium 3 ml 09/24/20 19:00 10/01/20 07:28 Ipratropium/Albuterol Sulfate 3 Ml Neb NEB 3 ml [id number] WES Administration Amiodarone HCl 400 mg 09/29/20 21:00 09/30/20 22:44 Amiodarone 200 Mg Tab PO 400 mg BID WES Administration Amlodipine Besylate 5 mg 09/27/20 09:00 09/30/20 22:44 Amlodipine 5 Mg Tab PO 5 mg Q12HR WES Administration Aspirin 81 mg 09/30/20 09:00 09/30/20 08:25 Aspirin 81 Mg Enteric Coated Tablet PO Not Given DAILY WES Atorvastatin Calcium 40 mg 09/26/20 21:00 09/30/20 22:44 Atorvastatin Calcium 40 Mg Tab PO 40 mg HS WES Administration Famotidine 20 mg 09/25/20 21:00 09/30/20 22:44 Famotidine 20 Mg Tab PO 20 mg BID WES Administration Furosemide 40 mg 09/26/20 09:00 09/30/20 08:10 Furosemide 40 Mg Tab PO 40 mg DAILY WES Administration Hydralazine HCl 10 mg 09/24/20 14:01 09/27/20 03:20 Hydralazine 20 Mg/Ml Vial SLOW IVP 10 mg Q6H PRN Administration To Maintain SBP< 140mmHG Lisinopril 5 mg 09/30/20 09:00 09/30/20 22:44 Lisinopril 5 Mg Tab PO 5 mg BID WES Administration Metoprolol Succinate 50 mg 09/27/20 09:00 09/30/20 08:10 Metoprolol Succinate Xl 25 Mg Tab PO 50 mg DAILY WES Administration Potassium Chloride 20 meq 09/27/20 08:00 09/30/20 07:43 Potassium Chloride 20 Meq Tab PO 20 meq QAM-WM WES Administration Sodium Chloride 10 ml 09/26/20 09:00 09/30/20 22:46 Flush - Normal Saline 10 Ml Syringe IVF 10 ml Q12HR WES Administration - Exam General Appearance: NAD, awake alert ENT: normocephalic atraumatic Heart: RRR, no murmur, no gallops, no rubs Respiratory: CTAB, no wheezes, no rales, no ronchi Gastrointestinal: soft, normal bowel sounds, tender to palpation (in RLQ, near bruise) Extremities: no edema Psychiatric: normal affect, normal behavior, A&O x 3 Hosp A/P (1) CAD (coronary artery disease) Code(s): I25.10 - ATHSCL HEART DISEASE OF [place] CORONARY ARTERY W/O ANG PCTRS Status: Acute (2) Diarrhea Code(s): R19.7 - DIARRHEA, UNSPECIFIED Status: Acute (3) Non-STEMI (non-ST elevated myocardial infarction) Code(s): I21.4 - NON-ST ELEVATION (NSTEMI) MYOCARDIAL INFARCTION Status: Acute (4) ETOH abuse Code(s): F10.10 - ALCOHOL ABUSE, UNCOMPLICATED Status: Chronic (5) Hypertension Code(s): I10 - ESSENTIAL (PRIMARY) HYPERTENSION Status: Chronic (6) Atrial fibrillation with RVR Code(s): I48.91 - UNSPECIFIED ATRIAL FIBRILLATION Status: Resolved (7) S/P CABG (coronary artery bypass graft) Code(s): Z95.1 - PRESENCE OF AORTOCORONARY BYPASS GRAFT Status: Acute (8) Tobacco abuse Code(s): Z72.0 - TOBACCO USE Status: Chronic - Plan * CAD- s/p CABG- he developed post-op AFIB. * AFIB with RVR- stable and on oral Amiodarone, continue amiodarone * Continue Eliquis * Continue low dose aspirin, Statin and Carvediolol was changed to Metoprolol * Diarrhea- - C. Diff screen is negative, continued diarrhea * HTN- blood pressure is down trending from yesterday * Tobacco Abuse- discussed the dangers of continued tobacco abuse. He says he knows he needs to quit. * Moved from ICU to tele, continue monitor on Tele * Cardiovascular surgery ok'ed for discharge * * Patient was seen and examined and discussed with Maria Guadalupe Núñez and agree with above. Patient does not have any new complaints. He is feeling fine. His exam is unchanged. Awaiting Life Vest, and then can be discharged home.
[2020-10-01] MEDS: Famotidine 20 MG TAB PO SCH ×2 (08:21→20:37)
[2020-10-01] MEDS: Aspirin 81 mg Enteric Coated Tablet PO SCH (08:21)
[2020-10-01] MEDS: Lisinopril 5 MG TAB PO SCH ×2 (08:22→20:37)
[2020-10-01] MEDS: Potassium Chloride 20 MEQ TAB PO SCH (08:22)
[2020-10-01] MEDS: Amlodipine 5 MG TAB PO SCH ×2 (08:23→20:36)
[2020-10-01] MEDS: Furosemide 40 MG TAB PO SCH (08:23)
[2020-10-01] MEDS: Amiodarone 200 MG TAB PO SCH ×2 (08:29→20:36)
--- NOTE | 2020-10-01 17:38 | PDOC.EP ---
- Subjective Date: 10/01/20 Time: 08:00 Interval History: no major events overnight. He is anticipating Life Vest placement later today and hopefully discharge. - Review of Systems Constitutional: denies: chills, fever, malaise, sweats, weakness Respiratory: denies: cough, dry, hemoptysis, shortness of breath Cardiology: reports: chest pain ( postop). denies: edema, heart racing, light headedness, palpitations Gastrointestinal: denies: abdominal pain, constipation, nausea, vomitting Musculoskeletal: denies: unstable gait, leg pain - Objective Allergies/Adverse Reactions: Allergies Allergy/AdvReac Type Severity Reaction Status Date / Time No Known Allergies Allergy Verified 09/22/20 22:04 Current Medications Acetaminophen (Acetaminophen 325 Mg Tab) 650 mg PO Q6H PRN PRN Reason: Headache/Fever/Mild Pain (1-3) Hydrocodone Bitart/Acetaminophen (Hydrocodone/Acetaminophen 5/325 Mg Tablet) 1 tab PO Q4H PRN PRN Reason: Moderate Pain (4-6) Last Admin: 10/01/20 12:43 Dose: 1 tab Documented by: Hydrocodone Bitart/Acetaminophen (Hydrocodone/Acetaminophen 5/325 Mg Tablet) 2 tab PO Q4H PRN PRN Reason: Severe Pain (7-10) Last Admin: 10/01/20 08:26 Dose: 2 tab Documented by: Al Hydroxide/Mg Hydroxide (Mag-Al 1200 Mg/1200 Mg/30 Ml Udcup) 30 ml PO Q4H PRN PRN Reason: Indigestion Albuterol/Ipratropium (Ipratropium/Albuterol Sulfate 3 Ml Neb) 3 ml NEB [id number] [facility] Last Admin: 10/01/20 14:27 Dose: 3 ml Documented by: Albuterol/Ipratropium (Ipratropium/Albuterol Sulfate 3 Ml Neb) 3 ml NEB Q6H PRN PRN Reason: SOB Amiodarone HCl (Amiodarone 200 Mg Tab) 400 mg PO BID [facility] Last Admin: 10/01/20 08:29 Dose: 400 mg Documented by: Amlodipine Besylate (Amlodipine 5 Mg Tab) 5 mg PO Q12HR [facility] Last Admin: 10/01/20 08:23 Dose: 5 mg Documented by: Aspirin (Aspirin 81 Mg Enteric Coated Tablet) 81 mg PO DAILY [facility] Last Admin: 10/01/20 08:21 Dose: 81 mg Documented by: Atorvastatin Calcium (Atorvastatin Calcium 40 Mg Tab) 40 mg PO HS [facility] Last Admin: 09/30/20 22:44 Dose: 40 mg Documented by: Bisacodyl (Bisacodyl 5 Mg Tab) 10 mg PO Q12H PRN PRN Reason: Constipation Bisacodyl (Bisacodyl 10 Mg Supp) 10 mg [place] Q12H PRN PRN Reason: Constipation Famotidine (Famotidine 20 Mg Tab) 20 mg PO BID [facility] Last Admin: 10/01/20 08:21 Dose: 20 mg Documented by: Furosemide (Furosemide 40 Mg Tab) 40 mg PO DAILY [facility] Last Admin: 10/01/20 08:23 Dose: 40 mg Documented by: Guaifenesin/Dextromethorphan (Guaifenesin Dm 100-10/5 Ml Udcup) 15 ml PO Q4H PRN PRN Reason: Cough Hydralazine HCl (Hydralazine 20 Mg/Ml Vial) 10 mg SLOW IVP Q6H PRN PRN Reason: To Maintain SBP< 140mmHG Last Admin: 09/27/20 03:20 Dose: 10 mg Documented by: Lisinopril (Lisinopril 5 Mg Tab) 5 mg PO BID [facility] Last Admin: 10/01/20 08:22 Dose: 5 mg Documented by: Metoprolol Succinate (Metoprolol Succinate Xl 25 Mg Tab) 50 mg PO DAILY [facility] Last Admin: 10/01/20 08:29 Dose: 50 mg Documented by: Mineral Oil (Mineral Oil Enema) 133 ml [place] DAILYPRN PRN PRN Reason: Constipation Nitroglycerin (Nitroglycerin 0.4 Mg Tab (25 Tab Bottle)) 0.4 mg SL Q5MIN PRN PRN Reason: Chest Pain Potassium Chloride (Potassium Chloride 20 Meq Tab) 20 meq PO QAM-WM [facility] Last Admin: 10/01/20 08:22 Dose: 20 meq Documented by: Sodium Chloride (Flush - Normal Saline 10 Ml Syringe) 10 ml IVF Q12HR [facility] Last Admin: 10/01/20 08:43 Dose: 10 ml Documented by: Sodium Chloride (Flush - Normal Saline 10 Ml Syringe) 10 ml IVF PRN PRN PRN Reason: Saline Flush Zolpidem Tartrate (Zolpidem Tartrate 5 Mg Tab) 5 mg PO HSPRN PRN PRN Reason: Insomnia Vital Signs & Weight: Vital Signs Temp Pulse Pulse Pulse Resp BP BP 10/01/20 15:37 98.4 F 65 14 10/01/20 14:27 67 18 10/01/20 13:53 58 L 59 L 134/61 10/01/20 11:30 97.9 F 63 16 10/01/20 08:41 70 122/70 10/01/20 08:23 68 144/67 H 10/01/20 08:22 68 144/67 H 10/01/20 07:28 66 14 10/01/20 07:23 98.7 F 68 15 BP BP Pulse Ox Pulse Ox Pulse Ox 10/01/20 15:37 113/60 97 10/01/20 14:27 97 10/01/20 13:53 113/63 98 97 10/01/20 11:30 132/69 98 10/01/20 08:41 146/65 H 98 98 10/01/20 08:23 10/01/20 08:22 10/01/20 07:28 100 10/01/20 07:23 144/67 H 98 Weight 154 lb I/O: I/O 09/30/20 10/01/20 10/02/20 06:59 06:59 06:59 Intake Total 1551 1050 Output Total 1600 1350 Balance -49 -300 - Quality Measures Condition: Atrial Fibrillation/Flutter (hx or current) - Physical Exam General: alert & oriented x3, appears well, no apparent distress, speech clear, affect appropriate HEENT: mucus membranes moist, normocephaly Neck: supple neck, midline trachea, no lymphadenopathy Cardiology: regular rate and rhythm, no murmur, PMI nondisplaced Lungs: clear to auscultation, normal breath sounds, no wheeze, rales, rhonchi Neurology: cranial nerve 2-12 intact, grossly intact, no lateralizing findings - Chadsvasc Risk factors Congestive heart failure: 1 Hypertension: 1 Vascular disease: 1 Risk Score: 3 - Labs Result Diagrams: 09/30/20 10:23 09/30/20 10:23 - EKG Interpretation EKG Method: Telemetry EKG shows: Sinus rhythm - Assessment/Plan Assessment/Plan: 1. CAD with CABG 09/24/2020 2. Atrial fibrillation RVR - post op s/p emergent CV 09/27 - OAC stopped due to post CABG bleed concern and no further AF on tele - amidoarone loading taper ongoing 3. Cardiomyopathy -LVEF 30% - Lifevest ordered Remains in SR, now on tele. Continue amiodarone loading taper and GDMT. Recommend continuing amiodarone 2-3 months post CABG then stopping and montioring for recurrent arrhythmias. OAC upon DC may be considered, especially if recurrent AF is seen, discussed with cardiology, agree with holding for now. Repeat echo in >90 day, if LVEF </=35% consider primary prevention dual chamber ICD implant. stable for DC by EP once LifeVest is in place. continue amiodarone taper as an outpatient to goal of 200 mg daily in 3-4 weeks time
[2020-10-01] MEDS: Atorvastatin Calcium 40 MG TAB PO SCH (20:37)
--- NOTE | 2020-10-02 07:54 | PDOC.HOSPP ---
- Subjective Encounter Date: 10/02/20 Encounter Time: 08:00 Subjective: Mr. Hudson is being followed for CAD is and is S/P 6 vessel CABG. Patient stated he slept ok and is gaining appetite, buts stated he still has low energy. He endorsed continued chest pain at incision site rated as a 5 out of 10. - Objective Vital Signs & Weight: Vital Signs (12 hours) Temp Pulse Resp BP BP Pulse Ox 10/02/20 07:49 63 14 10/02/20 03:36 97.2 F L 65 20 122/6 L 97 10/01/20 23:47 97 10/01/20 20:37 71 140/67 10/01/20 20:36 71 140/67 10/01/20 20:00 97 Weight Weight 153 lb 9 oz Most Recent Monitor Data Heart Rate from ECG 68 NIBP 146/87 NIBP BP-Mean 106 Respiration from ECG 15 SpO2 100 I&O: 10/01/20 10/02/20 10/03/20 06:59 06:59 06:59 Intake Total 1050 240 Output Total 1350 Balance -300 240 Result Diagrams: 09/30/20 10:23 09/30/20 10:23 Hospitalist ROS - Review of Systems Constitutional: denies: fever, chills, sweats Respiratory: reports: cough, dry, shortness of breath. denies: hemoptysis Cardiovascular: reports: chest pain (rated as 5 out of 10 at incision site). denies: palpitations Gastrointestinal: denies: nausea, vomiting, abdominal pain, diarrhea, constipation Musculoskeletal: reports: back pain (patient stated he had charonic back pain) Neurological: reports: seizures. denies: weakness, numbness - Medication Medications: Active Medications Generic Name Dose Route Start Last Admin Trade Name Freq PRN Reason Stop Dose Admin Hydrocodone Bitart/Acetaminophen 1 tab 09/24/20 14:01 10/01/20 20:37 Hydrocodone/Acetaminophen 5/325 Mg Tablet PO 1 tab Q4H PRN Administration Moderate Pain (4-6) Hydrocodone Bitart/Acetaminophen 2 tab 09/24/20 14:01 10/01/20 08:26 Hydrocodone/Acetaminophen 5/325 Mg Tablet PO 2 tab Q4H PRN Administration Severe Pain (7-10) Albuterol/Ipratropium 3 ml 09/24/20 19:00 10/02/20 07:49 Ipratropium/Albuterol Sulfate 3 Ml Neb NEB 3 ml [id number] Administration Amiodarone HCl 400 mg 09/29/20 21:00 10/01/20 20:36 Amiodarone 200 Mg Tab PO 400 mg BID WES Administration Amlodipine Besylate 5 mg 09/27/20 09:00 10/01/20 20:36 Amlodipine 5 Mg Tab PO 5 mg Q12HR WES Administration Aspirin 81 mg 09/30/20 09:00 10/01/20 08:21 Aspirin 81 Mg Enteric Coated Tablet PO 81 mg DAILY WES Administration Atorvastatin Calcium 40 mg 09/26/20 21:00 10/01/20 20:37 Atorvastatin Calcium 40 Mg Tab PO 40 mg HS WES Administration Famotidine 20 mg 09/25/20 21:00 10/01/20 20:37 Famotidine 20 Mg Tab PO 20 mg BID WES Administration Furosemide 40 mg 09/26/20 09:00 10/01/20 08:23 Furosemide 40 Mg Tab PO 40 mg DAILY WES Administration Hydralazine HCl 10 mg 09/24/20 14:01 09/27/20 03:20 Hydralazine 20 Mg/Ml Vial SLOW IVP 10 mg Q6H PRN Administration To Maintain SBP< 140mmHG Lisinopril 5 mg 09/30/20 09:00 10/01/20 20:37 Lisinopril 5 Mg Tab PO 5 mg BID WES Administration Metoprolol Succinate 50 mg 09/27/20 09:00 10/01/20 08:29 Metoprolol Succinate Xl 25 Mg Tab PO 50 mg DAILY WES Administration Potassium Chloride 20 meq 09/27/20 08:00 10/01/20 08:22 Potassium Chloride 20 Meq Tab PO 20 meq QAM-WM WES Administration Sodium Chloride 10 ml 09/26/20 09:00 10/01/20 20:42 Flush - Normal Saline 10 Ml Syringe IVF 10 ml Q12HR WES Administration - Exam General Appearance: NAD, awake alert Heart: RRR, no murmur, no gallops, no rubs Respiratory: CTAB, no wheezes, no rales, no ronchi Gastrointestinal: soft, non-tender, non-distended, normal bowel sounds Extremities: no edema Hosp A/P (1) CAD (coronary artery disease) Code(s): I25.10 - ATHSCL HEART DISEASE OF [place] CORONARY ARTERY W/O ANG PCTRS Status: Acute (2) Diarrhea Code(s): R19.7 - DIARRHE[place], UNSPECIFIED Status: Acute (3) Non-STEMI (non-ST elevated myocardial infarction) Code(s): I21.4 - NON-ST ELEVATION (NSTEMI) MYOCARDIAL INFARCTION Status: Acute (4) ETOH abuse Code(s): F10.10 - ALCOHOL ABUSE, UNCOMPLICATED Status: Chronic (5) Hypertension Code(s): I10 - ESSENTIAL (PRIMARY) HYPERTENSION Status: Chronic (6) Atrial fibrillation with RVR Code(s): I48.91 - UNSPECIFIED ATRIAL FIBRILLATION Status: Resolved (7) S/P CABG (coronary artery bypass graft) Code(s): Z95.1 - PRESENCE OF AORTOCORONARY BYPASS GRAFT Status: Acute (8) Tobacco abuse Code(s): Z72.0 - TOBACCO USE Status: Chronic - Plan * CAD- s/p CABG- he developed post-op AFIB. * AFIB with RVR- stable and on oral Amiodarone, patient continued on amiodarone * Continue Eliquis * Continue low dose aspirin, Statin and Carvediolol was changed to Metoprolol * Diarrhea- - C. Diff screen is negative, stated no diarrhea today * HTN- blood pressure is stable this morning * Tobacco Abuse- discussed the dangers of continued tobacco abuse. He says he knows he needs to quit. * Moved from ICU to tele, continue monitor on Tele * Cardiovascular surgery ok'ed for discharge * Patient waiting for lifevest fitting * * Patient was seen and examined and discussed with Maria Guadalupe Núñez and agree with above. Patient does not have any new complaints. He is feeling fine. His exam is unchanged. Awaiting Life Vest, and then can be discharged home.
[2020-10-02] MEDS: Potassium Chloride 20 MEQ TAB PO SCH (09:15)
[2020-10-02] MEDS: Amiodarone 200 MG TAB PO SCH (09:15)
[2020-10-02] MEDS: Amlodipine 5 MG TAB PO SCH (09:16)
[2020-10-02] MEDS: Furosemide 40 MG TAB PO SCH (09:16)
[2020-10-02] MEDS: Aspirin 81 mg Enteric Coated Tablet PO SCH (09:16)
[2020-10-02] MEDS: Lisinopril 5 MG TAB PO SCH (09:16)
[2020-10-02] MEDS: Famotidine 20 MG TAB PO SCH (09:16)
[2020-10-02] MEDS: HYDROcodone/Acetaminophen 5/325 mg Tablet PO PRN (09:17)
[2020-10-02 11:12] VITALS: BP 128/66; TEMP 97.5
--- NOTE | 2020-10-02 13:11 | PDOC.EP ---
- Subjective Date: 10/02/20 Time: 11:00 Interval History: preparing for discharge. He has no new concerns or complaints today. no adverse events overnight - Review of Systems Constitutional: denies: chills, fever, weakness Respiratory: denies: cough, pleuritic pain, shortness of breath Cardiology: reports: chest pain ( post bypass). denies: edema, heart racing, light headedness, passing out Gastrointestinal: denies: abdominal pain, constipation, diarrhea, vomitting Musculoskeletal: denies: unstable gait, leg pain, foot pain - Objective Allergies/Adverse Reactions: Allergies Allergy/AdvReac Type Severity Reaction Status Date / Time No Known Allergies Allergy Verified 09/22/20 22:04 Current Medications Acetaminophen (Acetaminophen 325 Mg Tab) 650 mg PO Q6H PRN PRN Reason: Headache/Fever/Mild Pain (1-3) Hydrocodone Bitart/Acetaminophen (Hydrocodone/Acetaminophen 5/325 Mg Tablet) 1 tab PO Q4H PRN PRN Reason: Moderate Pain (4-6) Last Admin: 10/01/20 20:37 Dose: 1 tab Documented by: Hydrocodone Bitart/Acetaminophen (Hydrocodone/Acetaminophen 5/325 Mg Tablet) 2 tab PO Q4H PRN PRN Reason: Severe Pain (7-10) Last Admin: 10/02/20 09:17 Dose: 2 tab Documented by: Al Hydroxide/Mg Hydroxide (Mag-Al 1200 Mg/1200 Mg/30 Ml Udcup) 30 ml PO Q4H PRN PRN Reason: Indigestion Albuterol/Ipratropium (Ipratropium/Albuterol Sulfate 3 Ml Neb) 3 ml NEB [id number] [facility] Last Admin: 10/02/20 07:49 Dose: 3 ml Documented by: Albuterol/Ipratropium (Ipratropium/Albuterol Sulfate 3 Ml Neb) 3 ml NEB Q6H PRN PRN Reason: SOB Amiodarone HCl (Amiodarone 200 Mg Tab) 400 mg PO BID [facility] Last Admin: 10/02/20 09:15 Dose: 400 mg Documented by: Amlodipine Besylate (Amlodipine 5 Mg Tab) 5 mg PO Q12HR [facility] Last Admin: 10/02/20 09:16 Dose: 5 mg Documented by: Aspirin (Aspirin 81 Mg Enteric Coated Tablet) 81 mg PO DAILY [facility] Last Admin: 10/02/20 09:16 Dose: 81 mg Documented by: Atorvastatin Calcium (Atorvastatin Calcium 40 Mg Tab) 40 mg PO HS [facility] Last Admin: 10/01/20 20:37 Dose: 40 mg Documented by: Bisacodyl (Bisacodyl 5 Mg Tab) 10 mg PO Q12H PRN PRN Reason: Constipation Bisacodyl (Bisacodyl 10 Mg Supp) 10 mg SC Q12H PRN PRN Reason: Constipation Famotidine (Famotidine 20 Mg Tab) 20 mg PO BID [facility] Last Admin: 10/02/20 09:16 Dose: 20 mg Documented by: Furosemide (Furosemide 40 Mg Tab) 40 mg PO DAILY [facility] Last Admin: 10/02/20 09:16 Dose: 40 mg Documented by: Guaifenesin/Dextromethorphan (Guaifenesin Dm 100-10/5 Ml Udcup) 15 ml PO Q4H PRN PRN Reason: Cough Hydralazine HCl (Hydralazine 20 Mg/Ml Vial) 10 mg SLOW IVP Q6H PRN PRN Reason: To Maintain SBP< 140mmHG Last Admin: 09/27/20 03:20 Dose: 10 mg Documented by: Lisinopril (Lisinopril 5 Mg Tab) 5 mg PO BID [facility] Last Admin: 10/02/20 09:16 Dose: 5 mg Documented by: Metoprolol Succinate (Metoprolol Succinate Xl 25 Mg Tab) 50 mg PO DAILY [facility] Last Admin: 10/02/20 09:17 Dose: 50 mg Documented by: Mineral Oil (Mineral Oil Enema) 133 ml SC DAILYPRN PRN PRN Reason: Constipation Nitroglycerin (Nitroglycerin 0.4 Mg Tab (25 Tab Bottle)) 0.4 mg SL Q5MIN PRN PRN Reason: Chest Pain Potassium Chloride (Potassium Chloride 20 Meq Tab) 20 meq PO QAM-WM [facility] Last Admin: 10/02/20 09:15 Dose: 20 meq Documented by: Sodium Chloride (Flush - Normal Saline 10 Ml Syringe) 10 ml IVF Q12HR [facility] Last Admin: 10/02/20 09:37 Dose: 10 ml Documented by: Sodium Chloride (Flush - Normal Saline 10 Ml Syringe) 10 ml IVF PRN PRN PRN Reason: Saline Flush Zolpidem Tartrate (Zolpidem Tartrate 5 Mg Tab) 5 mg PO HSPRN PRN PRN Reason: Insomnia Vital Signs & Weight: Vital Signs Temp Pulse Pulse Pulse Resp BP BP 10/02/20 11:09 97.5 F L 60 18 10/02/20 08:48 75 71 147/69 H 126/69 10/02/20 07:57 97.3 F L 64 18 10/02/20 07:49 63 14 10/02/20 03:36 97.2 F L 65 20 BP Pulse Ox Pulse Ox 10/02/20 11:09 128/66 98 10/02/20 08:48 97 10/02/20 07:57 126/69 97 10/02/20 07:49 10/02/20 03:36 122/6 L 97 Weight 153 lb 9 oz I/O: I/O 10/01/20 10/02/20 10/03/20 06:59 06:59 06:59 Intake Total 1050 240 Output Total 1350 Balance -300 240 - Quality Measures Condition: Atrial Fibrillation/Flutter (hx or current) CV meds: Aspirin: Yes, Plavix/Efficent/Brilinta: Yes - Physical Exam General: alert & oriented x3, appears well, speech clear HEENT: mucus membranes moist, normocephaly Neck: supple neck, midline trachea, no JVD/HJR Cardiology: regular rate and rhythm, no murmur, PMI nondisplaced Lungs: clear to auscultation, normal breath sounds, no wheeze, rales, rhonchi Neurology: cranial nerve 2-12 intact, grossly intact, no lateralizing findings Abdomen: unremarkable, active bowel sounds, no pulsations/bruits Extremities: dry, strong pulses, warm - Labs Result Diagrams: 09/30/20 10:23 09/30/20 10:23 - EKG Interpretation EKG Method: Telemetry EKG shows: Sinus rhythm - Assessment/Plan Assessment/Plan: 1. CAD with CABG 09/24/2020 2. Atrial fibrillation RVR - post op s/p emergent CV 09/27 - OAC stopped 09/30/20 by cardiology due to post CABG bleed concern and no further AF on tele - amidoarone loading taper ongoing 3. Cardiomyopathy -LVEF 30% - Lifevest ordered Remains in SR, now on tele. Continue amiodarone loading taper and GDMT. Recommend continuing amiodarone 2-3 months post CABG then stopping and montioring for recurrent arrhythmias. OAC upon DC may be considered, especially if recurrent AF is seen, discussed with cardiology, agree with holding for now. Repeat echo in >90 day, if LVEF </=35% consider primary prevention dual chamber ICD implant. stable for DC by EP once LifeVest is in place. continue amiodarone taper as an outpatient to goal of 200 mg daily in 3-4 weeks time. follow-up in 3 months after repeat echocardiogram
--- NOTE | 2020-10-02 18:14 | PDOC.DS.DS ---
Provider - Provider Date of Admission: 09/22/20 14:53 Date of Discharge: 10/02/20 Admitting Provider: Jo Johnson MD Consultations: Cardiology (Cardiovascular Surgery, EP- Cardiology) Primary Care Physician: LETI PCP PROVIDER Course - Hospital Course Hospital Course: Mr. Hudson is a 60-year-old gentleman that has a history of hypertension as well as tobacco abuse. He also has a history of noncompliance with medications in the past. He presented to the emergency room complaining of chest pain. He was evaluated and found to have an elevated troponin. He was diagnosed with an in STEMI. Cardiology was consulted and he underwent her that urgent cardiac catheterization. He was found to have multivessel disease including the left main which was 80% blocked and LAD with 95% proximal stenosis circumflex artery with 80% stenosis and an RCA dictates which had 80% stenosis and had an ejection fraction of 30%. Cardiovascular surgery was consulted and he underwent 6 vessel bypass. His hospital course was complicated by postop atrial fibrillation. He had a stay on IV amiodarone to control his heart rate. He had a repeat echocardiogram done to assess his ejection fraction which remained at 30 to 35%. For this reason he was fitted for a LifeVest. He is also a smoker and was counseled on the need to quit smoking. He was seen by tick eradicator due to the atrial fibrillation and also due to the low ejection fraction. It was recommended that he proceed with a LifeVest and also the amiodarone would be tapered. He also will not be discharged on anticoagulation due to the risk of bleeding with the recent surgery. And he will be reassessed in 2 to 3 months with the need for anticoagulation. Pertinent Studies: CTA- chest Echocardiogram Cardiac Catherization Repeat Echocardiogram Resuscitation Status: 09/22/20 15:15 Resuscitation Status Routine Co-Sign Provider: Resuscitation Status: FULL: Full Resuscitation Discussed with: Patient - Labs Lab Results: 09/30/20 10:23 09/30/20 10:23 Microbiology - Entire Visit 09/29/20 18:55 Stool C. difficile GDH Antigen & Toxins - Final - Physical Exam Vitals: Vital Signs (12 hours) Temp Pulse Pulse Pulse Resp BP BP 10/02/20 11:09 97.5 F L 60 18 10/02/20 08:48 75 71 147/69 H 126/69 10/02/20 07:57 97.3 F L 64 18 10/02/20 07:49 63 14 BP Pulse Ox Pulse Ox 10/02/20 11:09 128/66 98 10/02/20 08:48 97 10/02/20 07:57 126/69 97 10/02/20 07:49 Weight Weight 153 lb 9 oz Most Recent Monitor Data Heart Rate from ECG 68 NIBP 146/87 NIBP BP-Mean 106 Respiration from ECG 15 SpO2 100 Physical Exam: The patient was seen and examined on the day of discharge. Problem - Problem (1) CAD (coronary artery disease) Code(s): I25.10 - ATHSCL HEART DISEASE OF [place] CORONARY ARTERY W/O ANG PCTRS Status: Acute (2) Diarrhea Code(s): R19.7 - DIARRHEA, UNSPECIFIED Status: Chronic (3) Non-STEMI (non-ST elevated myocardial infarction) Code(s): I21.4 - NON-ST ELEVATION (NSTEMI) MYOCARDIAL INFARCTION Status: Acute (4) ETOH abuse Code(s): F10.10 - ALCOHOL ABUSE, UNCOMPLICATED Status: Chronic (5) Hypertension Code(s): I10 - ESSENTIAL (PRIMARY) HYPERTENSION Status: Chronic (6) Atrial fibrillation with RVR Code(s): I48.91 - UNSPECIFIED ATRIAL FIBRILLATION Status: Resolved (7) S/P CABG (coronary artery bypass graft) Code(s): Z95.1 - PRESENCE OF AORTOCORONARY BYPASS GRAFT Status: Acute (8) Tobacco abuse Code(s): Z72.0 - TOBACCO USE Status: Chronic Plan - Discharge Medications Prescriptions: Amiodarone [Cordarone] 200 mg PO TID #90 tab Aspirin [Ecotrin Low Strength] 81 mg PO DAILY #30 tab Atorvastatin Calcium [Lipitor] 40 mg PO HS #30 tab Amlodipine [Norvasc] 5 mg PO Q12HR #60 tab Metoprolol Succinate [Toprol XL] 50 mg PO DAILY #30 tab Lisinopril [Zestril] 5 mg PO BID #60 tab Home Medications: Medication Instructions Recorded Confirmed Type Acetaminophen [Tylenol Extra 1 tab PO PRN PRN 09/22/20 09/22/20 History Strength] Amlodipine [Norvasc] 5 mg PO Q12HR #60 tab 10/01/20 Rx Aspirin [Ecotrin Low Strength] 81 mg PO DAILY #30 tab 10/01/20 Rx Atorvastatin Calcium [Lipitor] 40 mg PO HS #30 tab 10/01/20 Rx Lisinopril [Zestril] 5 mg PO BID #60 tab 10/01/20 Rx Metoprolol Succinate [Toprol XL] 50 mg PO DAILY #30 tab 10/01/20 Rx Amiodarone [Cordarone] 200 mg PO TID #90 tab 10/02/20 Rx Allergies: No Known Allergies Allergy (Verified 09/22/20 22:04) - Discharge Instructions Discharge Instructions:: Call the [facility] for financial help with your Cardiology follow up appt at [phone]. Activity:: Activity as Tolerated Nourishment:: Heart Healthy Diet - Follow up Plan Referrals: Cardiac Rehab - [facility] [Outside] - 10/10/20 10:00 am Rhett Miramontes MD [Active] - 10/14/20 2:00 pm Marcos Moran MD [Executive Vp] - 3-4 Weeks (please call office for follow up appointment.) Chloe Smith MD [Active] - 10/09/20 10:00 am (You will be Seeing Martine Oquendo. OCCUPATIONAL THERAPY DIRECTOR) Sarkis Tristan MD [Active] - 3-4 Weeks Disposition: HOME Quality - Care Measures CORE MEASURES:: AMI - Stroke/TIA Did you prescribe antithrombotic therapy?: Yes Did you prescribe anticoagulant for A Fib/Flutter?: No Specify reason for no DC anticoagulant: Treatment not indicated Did you prescribe a statin medication?: Yes
--- NOTE | 2020-10-03 07:35 | PRG ---
DATE OF SERVICE: 10/02/2020 Mr. Hudson is planning on going home today. Blood pressure 147/69, pulse 70. He has had no recurrent atrial fibrillation. It is recommended he will probably go home with amiodarone 200 mg three times a day for 2 weeks reduce the amiodarone to 200 mg once a day, metoprolol long-acting 50 mg a day, aspirin 81 mg a day, amlodipine 5 mg twice a day, lisinopril 5 mg twice a day, potassium 20 mEq a day, and furosemide 40 mg a day. The patient will be asked to see us in the office in a week. I recommend an echocardiogram in a month. I think his ejection fraction will very likely be above 35% by then. At this point, I have not recommended Eliquis. I think the risk of bleeding outweighs the potential benefit. He only had one episode of atrial fibrillation. Also, it is going to be monitored by LifeVest. If he has recurrent atrial fibrillation, then Eliquis can be started, but there is certainly some risk of bleeding postoperative status. Job ID: [id number]
--- NOTE | 2020-10-03 09:14 | DIS ---
DATE OF ADMISSION: 09/22/2020 DATE OF DISCHARGE: 10/02/2020 The patient was admitted through the emergency room on 09/22, where he underwent cardiac catheterization. He was found to have severe coronary artery disease with depressed left ventricular systolic function. He was urgently taken for coronary artery bypass grafting, which proceeded well, ultimately undergoing 6 grafts with CARBONE to LAD, radial to an OM1, saphenous vein to an acute marginal and diagonal, and then a sequential graft to the PDA on the right and the second obtuse marginal. His postoperative course was notable only for one episode of atrial fibrillation with RVR with rates up to 250, which required placement back in the ICU and emergent cardioversion by Dr. Smith. He subsequently did well and a repeat echo continued to show an ejection fraction of 30% to 35%, so he will be discharged home with a LifeVest. His wounds were healing nicely at the time of discharge and his discharge medications will include amiodarone 400 b.i.d. and this will be tapered as an outpatient, aspirin 81 a day, atorvastatin 40 a day, Norvasc 5 twice a day and this could probably be simplified to Norvasc 10 once a day. He is also going home on Toprol-XL 50 a day, and lisinopril 5 b.i.d. which probably can be simplified to 10 at bedtime. Discharge and followup instructions have been given. Job ID: [id number]
== END 2020-10-02 14:58 | disposition home or self-care (01) | DRG 234 ==
LOC: ERS 12:11 → ERHOLD 14:53 → 2NO 19:54 → CCU 09-24 09:43 → 2NO 09-25 17:53 → CCU 09-27 08:44 → 2NO 09-30 14:46
PROVIDERS: ADMIT Internal Medicine; ATTEND Emergency Medicine
PROC: 02100Z9 Bypass Coronary Artery, One Artery from Left Internal Mammary, Open Approach (ICD-10-PCS; principal; 2020-09-24)
PROC: 4A023N7 Measurement of Cardiac Sampling and Pressure, Left Heart, Percutaneous Approach (ICD-10-PCS; 2020-09-24)
PROC: 021309W Bypass Coronary Artery, Four or More Arteries from Aorta with Autologous Venous Tissue, Open Approach (ICD-10-PCS; 2020-09-24)
PROC: 02100AW Bypass Coronary Artery, One Artery from Aorta with Autologous Arterial Tissue, Open Approach (ICD-10-PCS; 2020-09-24)
PROC: 06BQ0ZZ Excision of Left Saphenous Vein, Open Approach (ICD-10-PCS; 2020-09-24)
PROC: 03BC4ZZ Excision of Left Radial Artery, Percutaneous Endoscopic Approach (ICD-10-PCS; 2020-09-24)
PROC: 5A1221Z Performance of Cardiac Output, Continuous (ICD-10-PCS; 2020-09-24)
PROC: B2111ZZ Fluoroscopy of Multiple Coronary Arteries using Low Osmolar Contrast (ICD-10-PCS; 2020-09-24)
DX: I21.4 Non-ST elevation (NSTEMI) myocardial infarction (principal); I10 Essential (primary) hypertension; F17.210 Nicotine dependence, cigarettes, uncomplicated; F32.9 Major depressive disorder, single episode, unspecified; Z96.641 Presence of right artificial hip joint; I25.10 Atherosclerotic heart disease of native coronary artery without angina pectoris; I48.91 Unspecified atrial fibrillation; R19.7 Diarrhea, unspecified; R91.1 Solitary pulmonary nodule; Z20.828 Contact with and (suspected) exposure to other viral communicable diseases; I25.5 Ischemic cardiomyopathy; F10.10 Alcohol abuse, uncomplicated; F12.10 Cannabis abuse, uncomplicated; R91.8 Other nonspecific abnormal finding of lung field; Z93.3 Colostomy status; Z91.14 Patient's other noncompliance with medication regimen; Z79.82 Long term (current) use of aspirin
CPT/HCPCS: 36415; 36416; 36430; 71045; 71275; 80048; 80053; 80061; 80306; 81001; 82553; 82805; 83690; 83735; 83880; 84443; 84484; 85025; 85379; 85610; 85730; 86850; 86900; 86901; 87324; 87449; 87635; 93005; 93010; 93306; 93458; 93798; 94640; 94760; 96372; 96374; 99152; 99153; J0282; J0360; J0690; J1265; J1644; J1650; J1815; J1885; J2001; J2150; J2250; J2270; J2405; J2440; J2704; J2720; J3010; J3370; J3475; J3480; J3490; J7050; J7070; J7620; P9045; Q9967; S0017; S0028; U0003

== ENCOUNTER 2020-10-16 14:11 | Outpatient (CLI) | payer SELFPAY ==
--- NOTE | 2020-10-16 14:54 | RAD ---
TWO VIEW CHEST: 10/16/20 HISTORY: Angina. Chest pain. COMPARISON: 09/25/20. Mild cardiomegaly with postop sternotomy changes, stable. No evidence of vascular congestion. Small b ilateral effusions are again noted obscuring the posterior gutters. IMPRESSION: Small bilateral effusions. Otherwise no acute process. POS: AH
== END 2020-10-16 14:12 | disposition home or self-care (01) ==
LOC: RAD 14:11
PROVIDERS: ATTEND Thoracic Surgery (Cardiothoracic Vascular Surgery)
DX: I20.0 Unstable angina (principal); J90 Pleural effusion, not elsewhere classified
CPT/HCPCS: 71046